=== PATIENT | male | born 1970 | race Caucasian/White ===

== ENCOUNTER 2022-05-24 21:09 | Emergency (ER) | payer OTHER, SELFPAY ==
[2022-05-24] VITALS (9 sets, daily range): BP systolic 141–182; BP diastolic 91–103; PULSE 75–125; RESP 12–20; O2SAT 97–100
--- NOTE | ~2022-05-24 | CT_ITS ---
EXAMINATION: CT brain wo con DATE: 05/24/2022 21:22 INDICATION: Stroke with right arm and leg dystaxia and weakness. TECHNIQUE: Computed tomography (CT) of the head was performed without intravenous contrast. Sagittal and coronal reconstructions were performed. The mA was adjusted according to patient size. Iterative reconstruction technique was employed. The dose-length product was 681.00 mGy-cm. COMPARISON: None FINDINGS: No acute intracranial hemorrhage, acute infarction or abnormal extra axial fluid collection. Ventricl es are normal and symmetric. No mass/mass effect. The orbits, paranasal sinuses and mastoid air cells are normal. IMPRESSION: 1. Normal head CT. Reviewed, dictated and finalized at location A. IMPRESSION: 1. Normal head CT.
--- NOTE | ~2022-05-24 | CT_ITS ---
EXAMINATION: CTA BRAIN/CAROTID DATE: 05/24/2022 21:35 INDICATION: Right arm and leg weakness. TECHNIQUE: Computed tomographic angiography (CTA) of the head and neck was performed with 100 mL Omni paque-350 intravenous contrast. Multiplanar reconstructions and maximum intensity projection 3D-recon structions of the carotid arteries and of the intracranial arteries were created by the technologist on a separate workstation. Automated exposure control and iterative reconstruction technique were em ployed.The dose-length product was 1190.16 mGy-cm. COMPARISON: Head CT dated 05/24/2022 FINDINGS: Carotid arteries: Visualized aortic arch is normal in caliber with no dissection or evident atherosclerotic plaque. The re is small amount of atherosclerotic plaque with 0% stenosis of both the left and right carotid bulb s relative to normal distal artery lumen diameter (NASCET criteria). Additional small amount of ather osclerotic plaque without significant stenosis along the cervical portion of the right vertebral lexy ry. Left vertebral artery is normal. Mild dependent atelectasis likely due to expiratory phase of june ging in the visualized upper lungs. Superior mediastinum is unremarkable as are the cervical soft tis sues. Mild to moderate upper thoracic spondylosis. Cervical spine is unremarkable. Intracranial arteries There is no hemodynamically significant stenosis in the vertebral, basilar and internal carotid arter ies. Vertebral arteries are codominant. There are no aneurysms identified. Both A1 and P1 segments a re patent. There is also a patent anterior to indicating artery. Cerebral arterial arborization appea rs symmetric. IMPRESSION: 1. 0% stenosis of the left and right carotid bulbs relative to normal distal artery lumen diameter (N ASCET criteria). 2. Normal cerebral CT angiogram with no hemodynamically significant stenosis, aneurysm, thrombosis or dissection. Reviewed, dictated and finalized at location A. IMPRESSION: 1. 0% stenosis of the left and right carotid bulbs relative to normal distal ar ale lumen diameter (NASCET criteria). 2. Normal cerebral CT angiogram with no hemodynamically significant stenosis, a neurysm, thrombosis or dissection.
--- NOTE | ~2022-05-24 | XR_ITS ---
EXAMINATION: XR chest 1V portable DATE: 05/24/2022 21:50 INDICATION: Stroke with right arm and leg weakness TECHNIQUE: frontal view of the chest was obtained. COMPARISON: None FINDINGS: Mildly decreased lung volumes. No focal airspace opacities, pulmonary edema, pleural effusion or pneu mothorax. Cardiac silhouette is partially obscured by the small lung volumes and a prominent left par acardial fat pad but appears within normal limits for AP technique. Mild thoracic spondylosis. IMPRESSION: 1. Small lung volumes. No acute cardiopulmonary disease. Reviewed, dictated and finalized at location A.
--- NOTE | 2022-05-24 21:13 | ECG_ITS ---
Measurements Intervals [place] Rate: 85 P: 31 MO: 155 QRS: 39 QRSD: 102 T: 37 QT: 351 QTc: 418 Interpretive Statements SINUS RHYTHM WITH OCCASIONAL VENTRICULAR PREMATURE COMPLEXES OTHERWISE NORMAL ECG NO PREVIOUS ECG AVAILABLE FOR COMPARISON Electronically Signed On 05-25-2022 7:20:24 CDT by Gama Avelar M.D.
[2022-05-24 21:26] LABS: Estimated Glomerular Filt Rate > 60
[2022-05-24 21:27] LABS: Glucose Point of Care 136 mg/dl (65-105)
[2022-05-24 21:31] LABS: Basophils Absolute Auto 0.1 K/mm3 (0.0-0.1); Basophils Percent Auto 0.9 % (0.2-1.2); Eosinophils Absolute Auto 0.2 K/mm3 (0-0.3); Eosinophils Percent Auto 2.1 % (0-4.4); Hematocrit 40.6 % (42.0-52.0); Hemoglobin 12.6 g/dL (14.0-18.0); Immature Granulocyte Absolute 0.02 K/mm3 (0.00-0.031); Immature Granulocyte Percent A 0.3 % (0-0.5); Lymphocytes Absolute Auto 2.26 K/mm3 (0.9-3.2); Mean Corpuscular Hemoglobin 23.8 pg (26-34); Mean Corpuscular Volume 76.7 fl (80-100); Mean Platelet Volume 8.5 fl (7.4-10.4); Monocytes Absolute Auto 0.8 K/mm3 (0.1-0.6); Monocytes Percent Auto 10.4 % (2.6-8.5); Neutrophils Absolute Auto 4.5 K/mm3 (1.3-6.7); Neutrophils Percent Auto 57.3 % (45.5-73.1); Platelet Count Result 301 k/mm3 (150-375); Red Blood Count 5.29 M/mm3 (4.6-6.20); Red Cell Distribution Width 14.4 % (11.5-14.5); White Blood Count 7.8 K/mm3 (4.5-10.0)
[2022-05-24 21:39] LABS: Prothrombin Time 12.6 Seconds (11.1-14.7)
[2022-05-24 21:40] LABS: Alanine Aminotransferase 26 U/L (6-50); Albumin Level 4.3 g/dL (3.5-5.1); Alkaline Phosphatase 114 U/L (38-126); Anion Gap 9 mmol/L (8-16); Aspartate Amino Transferase 25 U/L (17-59); Bilirubin,Total 0.4 mg/dL (0.2-1.3); Blood Urea Nitrogen 12 mg/dL (9-20); Calcium 9.1 mg/dL (8.4-10.2); Carbon Dioxide 25 mmol/L (22-30); Chloride 103 mmol/L (98-107); Estimated Glomerular Filt Rate > 60; Glucose 140 mg/dL (65-110); Partial Thromboplastin Time 26.2 SECONDS (22.3-36.8); Potassium 4.3 mmol/L (3.4-5.0); Sodium 137 mmol/L (137-145)
[2022-05-24 21:51] LABS: Troponin I < 0.012 ng/mL (0.000-0.034)
--- NOTE | 2022-05-24 22:02 | ED.NEUROSD ---
HPI - Neuro Symptoms/Deficit General Chief Complaint: Suspected CVA Stated Complaint: Right arm/leg weakness Time Seen by Provider: 05/24/22 21:18 History of Present Illness HPI Narrative: this is a 51-year-old male presenting to ED with right arm and right leg weakness and ataxia. 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 He was last known normal at 3:00 p.m. when he filled up his casting. He then got in the car and drove until 530. When he tried to get off a cart that point he was having difficulty walking due to weakness in his right leg. He was also having difficulty coordinating his right hand. For example when he was trying to eat with a fork he was hitting himself in the teeth with a fork. He then came into the hospital for evaluation. Patient denies any numbness tingling or weakness to the left side of his body. Denies facial droop, dysarthria dysphagia any vision changes. Related Data Home Medications Medication Instructions Recorded Confirmed naproxen sodium 220 mg tablet 220 mg PO BID PRN 10/22/19 04/01/22 (Aleve) psyllium husk 0.52 gram capsule 0.52 gm PO DAILY 10/22/19 04/01/22 (Metamucil) sitagliptin 50 mg-metformin 1,000 1 tablet PO BID 10/22/19 04/01/22 mg tablet (Janumet) gabapentin 100 mg capsule 100 mg PO DAILY 04/01/22 04/01/22 lidocaine 4 % topical patch 1 patch topical DAILY PRN 04/01/22 04/01/22 pantoprazole 40 mg granules 40 mg PO DAILY 04/01/22 04/01/22 delayed-release for susp in packet (Protonix) Allergies Allergy/AdvReac Type Severity Reaction Status Date / Time Penicillins Allergy Unknown Unknown Verified 04/01/22 09:58 Review of Systems Review of Systems: CONSTITUTIONAL: Denies night sweats. EYES: No eye pain ENT: Denies rhinorrhea CARDIOVASCULAR: Denies palpitations RESPIRATORY: Denies hemoptysis GASTROINTESTINAL: Denies hematemesis GENITOURINARY: Denies hematuria. SKIN: Denies rash MUSCULOSKELETAL: Denies myalgia. NEUROLOGIC: Denies weakness. PSYCHIATRIC: Denies delusions PMFSH Past Medical History Medical History (Updated 05/25/22 @ 19:10 by Kobi Schaefer MD) Body mass index (bmi) 31.0-31.9, adult (10/19/18) Diabetes Ulcerative colitis Family History Family History Mother Diabetes mellitus Family history of congestive heart failure Father Family history of cardiovascular disease Social History Social History Smoking status: Never smoker Exam Narrative: APPEARANCE: No apparent distress. Head atraumatic. EYES: PERRLA/EOMI, NOSE: Normal no drainage NECK: Supple, Trachea midline RESPIRATORY: CTAB, No increased work of breathing. CARDIOVASCULAR: S1S2 appreciated ABDOMINAL: Soft, nontender, nondistended, MUSCULOSKELETAl: No obvious deformities NEURO: Alert. Patient has mild drift and ataxia of the right arm and right leg. Sensation light touch intact in for 4 extremities. Left arm and leg have intact motor, and cerebellar function. Cranial nerves 2-12 grossly intact. SKIN:: Warm, dry. Normal color PSYCHIATRIC: Normal affect Course Vital Signs Vital signs: Vital Signs Pulse Rate 125 H 05/24/22 21:35 Respiratory Rate 16 05/24/22 21:35 Blood Pressure 182/103 H 05/24/22 21:35 Pulse Oximetry 98 05/24/22 21:35 Oxygen Delivery Room Air 05/24/22 21:35 Pulse Rate 112 H 05/25/22 02:50 Respiratory Rate 20 05/25/22 02:50 Blood Pressure 161/94 H 05/25/22 02:50 Pulse Oximetry 100 05/25/22 02:50 Oxygen Delivery Room Air 05/24/22 21:35 MDM - Neuro Symptoms/Deficit MDM Narrative Medical decision making narrative: 51-year-old male presenting to ED with stroke-like symptoms. NIH is 4. CT head, CTA head and neck in order. They were negative for any acute findings. Patient is outside of the tPA window. Patient has been given 324 mg of aspirin. Permissive HTN. Patient was transferred to an outside hospital
[2022-05-24] MEDS: ASPIRIN 81 MG CHEWABLE TABLET 324 MG PO (22:31)
--- NOTE | 2022-05-24 23:54 | PC.NURSE ---
[facility] bed center called and report was given. Pt needs a COVID test before transfer and MD was notified to this. This nurse to call call center back with COVID results at [phone]
[2022-05-25] VITALS (8 sets, daily range): BP systolic 142–162; BP diastolic 92–101; PULSE 112–113; RESP 16–20; O2SAT 96–100
[2022-05-25 00:48] LABS: SARS-CoV-2 RNA PCR Negative
--- NOTE | 2022-05-25 00:53 | PC.NURSE ---
This nurse spoke with the [facility] transfer center with negative results of the COVID test done today.
== END 2022-05-25 02:57 | disposition short-term general hospital (02) ==
PROVIDERS: Emergency Provider Emergency Medicine
DX: I63.9 Cerebral infarction, unspecified (principal); R29.704 NIHSS score 4; Z20.822 Contact with and (suspected) exposure to COVID-19; E11.9 Type 2 diabetes mellitus without complications; Z79.84 Long term (current) use of oral hypoglycemic drugs
CPT/HCPCS: 70450; 70496; 70498; 71045; 80053; 82948; 84484; 85025; 85610; 85730; 93005; 99285; A9270; C9803; Q9967; U0003; U0005

== ENCOUNTER 2023-01-06 17:01 | Emergency (ER) | payer OTHER, SELFPAY ==
[2023-01-06] VITALS (14 sets, daily range): BP systolic 134–141; BP diastolic 85–95; PULSE 70–87; RESP 14–18; TEMP 36.6; O2SAT 96–100
[2023-01-06 17:20] LABS: Glucose Point of Care > 500 mg/dl (65-105)
[2023-01-06 17:24] LABS: Basophils Absolute Auto 0.1 K/mm3 (0.0-0.1); Basophils Percent Auto 0.9 % (0.2-1.2); Eosinophils Absolute Auto 0.1 K/mm3 (0-0.3); Eosinophils Percent Auto 1.8 % (0-4.4); Hematocrit 37.1 % (42.0-52.0); Hemoglobin 11.4 g/dL (14.0-18.0); Immature Granulocyte Absolute 0.02 K/mm3 (0.00-0.031); Immature Granulocyte Percent A 0.3 % (0-0.5); Lymphocytes Absolute Auto 1.76 K/mm3 (0.9-3.2); Mean Corpuscular HGB Conc 30.7 g/dl (32-36); Mean Corpuscular Hemoglobin 21.4 pg (26-34); Mean Corpuscular Volume 69.6 fl (80-100); Mean Platelet Volume 9.6 fl (7.4-10.4); Monocytes Absolute Auto 0.6 K/mm3 (0.1-0.6); Monocytes Percent Auto 8.5 % (2.6-8.5); Neutrophils Absolute Auto 4.5 K/mm3 (1.3-6.7); Neutrophils Percent Auto 63.5 % (45.5-73.1); Platelet Count Result 299 k/mm3 (150-375); Red Blood Count 5.33 M/mm3 (4.6-6.20); Red Cell Distribution Width 14.4 % (11.5-14.5)
[2023-01-06 17:37] LABS: Alanine Aminotransferase 24 U/L (6-50); Albumin Level 4.4 g/dL (3.5-5.1); Alkaline Phosphatase 121 U/L (38-126); Anion Gap 8 mmol/L (8-16); Aspartate Amino Transferase 21 U/L (17-59); Bilirubin,Total 0.7 mg/dL (0.2-1.3); Blood Urea Nitrogen 10 mg/dL (9-20); Calcium 8.6 mg/dL (8.4-10.2); Carbon Dioxide 25 mmol/L (22-30); Chloride 100 mmol/L (98-107); Estimated CRCL calculation 84 ml/min; Estimated Glomerular Filt Rate > 60; Glucose 609 mg/dL (65-110); Potassium 4.3 mmol/L (3.4-5.0); Sodium 133 mmol/L (137-145)
[2023-01-06 17:38] LABS: Beta-Hydroxybutyrate/Acetoacetate 0.06 mmol/L (0.02-0.27)
[2023-01-06 17:44] LABS: Appearance Urine Clear (Clear); Bilirubin Urine Negative (Negative); Blood Urine Negative (Negative); Color Urine Yellow (Yellow); Glucose Urine UA 3+ mg/dL (Negative); Ketones Urine Negative (Negative); Leukocyte Esterase Ur Negative LEU/UL (Negative); Nitrate Urine Negative (Negative); Protein Urine Negative (Negative); Urobilinogen Urine 0.2 mg/dL (<2.0)
[2023-01-06 17:59] LABS: Platelet Estimate Adequate (Adequate)
[2023-01-06 18:00] LABS: Hypochromasia 1+ (NORMAL); Schistocytes None Seen (NORMAL)
[2023-01-06 18:01] LABS: Anisocytosis 1+ (NORMAL); Microcytosis 1+ (NORMAL)
[2023-01-06 18:06] LABS: Specific Grav Ur 1.039 (1.001-1.035)
[2023-01-06 18:07] LABS: Add Urine Microscopic? NO
[2023-01-06] MEDS: SODIUM CHLORIDE 0.9% IV 1,000 ML 999 ML IV CONT ×2 (18:55)
--- NOTE | 2023-01-06 20:32 | ED.GENADULT ---
HPI - General Adult General Chief complaint: Recheck/Abnormal Lab/Rx Stated complaint: high BS Time Seen by Provider: 01/06/23 18:30 History of Present Illness HPI narrative: Patient is a 52-year-old male who presents ER with hyperglycemia. He has follow-up in 3 days with his PCP. He had outpatient lab work that showed his hemoglobin A1c was 14. He also had a critically elevated glucose and was told to come to the ER. Reports for the last 2 to 3 months he has felt a little off. He has not been checking his blood sugars. He takes Lantus 25 units in the evening. He also takes Janumet daily. No fevers or chills or sweats. No chest pain or chest pressure. No polydipsia or polyuria. Related Data Home Medications Medication Instructions Recorded Confirmed naproxen sodium 220 mg tablet 220 mg PO BID PRN 10/22/19 04/01/22 (Aleve) psyllium husk 0.52 gram capsule 0.52 gm PO DAILY 10/22/19 04/01/22 (Metamucil) sitagliptin phosphate 50 1 tablet PO BID 10/22/19 04/01/22 mg-metformin 1,000 mg tablet (Janumet) gabapentin 100 mg capsule 100 mg PO DAILY 04/01/22 04/01/22 pantoprazole 40 mg granules 40 mg PO DAILY 04/01/22 04/01/22 delayed-release for susp in packet (Protonix) apixaban 2.5 mg tablet (Eliquis) 5 mg PO ONCE 11/04/22 11/04/22 atorvastatin 40 mg tablet 40 mg PO DAILY 11/04/22 11/04/22 insulin glargine 100 unit/mL 20 unit subcut DAILY 11/04/22 11/04/22 subcutaneous solution (Lantus U-100 Insulin) Allergies Allergy/AdvReac Type Severity Reaction Status Date / Time Penicillins Allergy Unknown Unknown Verified 11/04/22 09:24 Review of Systems Review of Systems: All systems reviewed & are unremarkable except as noted in HPI and below Constitutional: Constitutional: Denies chills, Reports fatigue and Denies fever(s) ENT: Denies nasal congestion and Denies sore throat Endocrine: Endocrine: Denies excessive sweating, Reports fatigue, Denies polydipsia and Denies polyuria [facility] Past Medical History Medical History Body mass index (bmi) 31.0-31.9, adult (10/19/18) Diabetes Ulcerative colitis Family History Family History Mother Diabetes mellitus Family history of congestive heart failure Father Family history of cardiovascular disease Social History Social History Smoking status: Never smoker Exam Narrative: GENERAL: Well-appearing, well-nourished, and in no acute distress. HEAD: Normocephalic, atraumatic. EYES: PERRL and EOMI. ENT: Mucous membranes moist.. CHEST: Clear to auscultation. No respiratory distress. HEART: Regular rate and rhythm. Normal peripheral pulses. ABDOMEN: Soft, nontender, nondistended. EXTREMITIES: Normal range of motion. No edema. SKIN: Warm, dry, no rash. NEURO: Alert and oriented x3. PSYCH: Normal mood and affect. Course Course Emergency Course: Patient resting comfortably. Informed results. Patient hydrated with 2 L of fluid and blood sugar came down to 332. Patient will have his Lantus increased to 40 units in the evening. He needs follow-up with his PCP. Vital Signs Vital signs: Vital Signs Temperature 97.8 F 01/06/23 17:03 Pulse Rate 87 01/06/23 17:03 Respiratory Rate 18 01/06/23 17:03 Blood Pressure 137/93 H 01/06/23 17:03 Pulse Oximetry 96 01/06/23 17:03 Oxygen Delivery Room Air 01/06/23 17:03 Temperature 97.8 F 01/06/23 17:03 Pulse Rate 72 01/06/23 19:41 Respiratory Rate 14 01/06/23 20:10 Blood Pressure 141/85 H 01/06/23 18:46 Pulse Oximetry 99 01/06/23 20:10 Oxygen Delivery Room Air 01/06/23 17:03 Medical Decision Making Vital Signs Vital Signs: Vital Signs Temperature 97.8 F 01/06/23 17:03 Pulse Rate 87 01/06/23 17:03 Respiratory Rate 18 01/06/23 17:03 Blood Pressure 137/93 H 01/06/23 17:03 Pulse Oximetry 96 01/06/23
[2023-01-06 20:46] LABS: Glucose Point of Care 332 mg/dl (65-105)
== END 2023-01-06 22:08 | disposition home or self-care (01) ==
PROVIDERS: Emergency Provider Emergency Medicine
DX: E11.65 Type 2 diabetes mellitus with hyperglycemia (principal); K51.90 Ulcerative colitis, unspecified, without complications; Z79.4 Long term (current) use of insulin; Z79.84 Long term (current) use of oral hypoglycemic drugs; Z79.01 Long term (current) use of anticoagulants
CPT/HCPCS: 36415; 80053; 81003; 82010; 82948; 85025; 96360; 96361; 99283; J7030

== ENCOUNTER 2023-04-13 09:59 | Observation (INO) | payer OTHER, SELFPAY ==
--- NOTE | ~2023-04-13 | XR_ITS ---
XR chest 2V DATE: 04/13/2023 11:02 INDICATION: Chest pain, shortness of breath TECHNIQUE: PA and lateral views COMPARISON: 05/24/2022 portable AP chest FINDINGS: Normal heart size. No hilar or mediastinal enlargement. No pulmonary infiltrate or consolid ation, pleural effusion or pulmonary vascular congestion or pneumothorax is detected. IMPRESSION: No active cardiopulmonary disease Reviewed, dictated and finalized at location A.
--- NOTE | ~2023-04-13 | CT_ITS ---
Clinical Indication: Shortness of breath, fever, rectal pain CT Scan of the Chest, Abdomen, and Pelvis with Contrast: Technique: Contiguous sections were acquired throughout the chest, abdomen, and pelvis after intraven ous administration of 100 cc of Omnipaque 350. Dose reduction technique was used on this scan by [employer]i lorening automated exposure control and iterative reconstruction technique. The dose-length product (DL P) was 1679.69 mGy-cm. COMPARISON: 01/22/2016 Findings: There is no evidence of any significant mediastinal, hilar or axillary lymphadenopathy. The mediastin al soft tissues appear normal. No pulmonary embolus. No aortic aneurysm or dissection. There is no evidence of pleural or pericardial effusion. The lungs are clear. No pulmonary nodules or infiltrates are noted. The liver, spleen, pancreas, gallbladder, adrenals and kidneys are within normal limits. No evidence of aortic aneurysm. No lymphadenopathy. There is evidence of extensive prior colectomy with anastomosis present extensive surgical material a long the distal bowel. These findings are stable in appearance from prior exam. There are multiple mi ldly prominent perirectal/mesenteric lymph nodes, which are similar to prior exam. Urinary bladder is unremarkable. Prostate gland is enlarged. Impression: No pulmonary embolus. Clear lungs. No acute abnormality in the abdomen or pelvis. Stable postoperative changes of the large bowel, as noted above. Stable prominent/mildly enlarged perirectal and mesenteric lymph nodes. Stability since 2015 suggests benign or indolent process. Reviewed, dictated and finalized at [facility]. Impression: No pulmonary embolus. Clear lungs. No acute abnormality in the abdomen or pelvis. Stable postoperative changes of the large bowel, as noted above. Stable prominent/mildly enlarged perirectal and mesenteric lymph nodes. Stabili ty since 2015 suggests benign or indolent process.
--- NOTE | 2023-04-13 10:06 | ECG_ITS ---
Measurements Intervals [place] Rate: 111 P: 14 AL: 130 QRS: 42 QRSD: 93 T: 26 QT: 309 QTc: 420 Interpretive Statements SINUS TACHYCARDIA OTHERWISE NORMAL ECG COMPARED TO ECG 05/24/2022 21:40:42 SINUS TACHYCARDIA NOW PRESENT Electronically Signed On 04-14-2023 10:32:40 CDT by Jose Severino M.D.
[2023-04-13 10:31] VITALS: BP 125/77; PULSE 113; RESP 20; TEMP 36.3; O2SAT 99
[2023-04-13 10:51] LABS: Basophils Absolute Auto 0.1 K/mm3 (0.0-0.1); Basophils Percent Auto 0.6 % (0.2-1.2); Eosinophils Percent Auto 0.1 % (0-4.4); Hematocrit 33.8 % (42.0-52.0); Hemoglobin 10.1 g/dL (14.0-18.0); Immature Granulocyte Absolute 0.08 K/mm3 (0.00-0.031); Immature Granulocyte Percent A 0.5 % (0-0.5); Lymphocytes Absolute Auto 0.64 K/mm3 (0.9-3.2); Lymphocytes Percent Auto 3.9 % (18.3-44.2); Mean Corpuscular HGB Conc 29.9 g/dl (32-36); Mean Corpuscular Hemoglobin 19.3 pg (26-34); Mean Corpuscular Volume 64.6 fl (80-100); Mean Platelet Volume 9.1 fl (7.4-10.4); Monocytes Absolute Auto 0.7 K/mm3 (0.1-0.6); Neutrophils Absolute Auto 14.8 K/mm3 (1.3-6.7); Neutrophils Percent Auto 90.9 % (45.5-73.1); Platelet Count Result 300 k/mm3 (150-375); Red Blood Count 5.23 M/mm3 (4.6-6.20); Red Cell Distribution Width 17.2 % (11.5-14.5); White Blood Count 16.3 K/mm3 (4.5-10.0)
[2023-04-13 11:00] LABS: Alanine Aminotransferase 22 U/L (6-50); Albumin Level 4.1 g/dL (3.5-5.1); Alkaline Phosphatase 107 U/L (38-126); Anion Gap 9 mmol/L (8-16); Aspartate Amino Transferase 28 U/L (17-59); Bilirubin,Total 0.9 mg/dL (0.2-1.3); Blood Urea Nitrogen 14 mg/dL (9-20); Calcium 8.4 mg/dL (8.4-10.2); Carbon Dioxide 22 mmol/L (22-30); Chloride 103 mmol/L (98-107); Estimated CRCL calculation 74 ml/min; Estimated Glomerular Filt Rate 58; Glucose 202 mg/dL (65-110); Potassium 4.5 mmol/L (3.4-5.0); Sodium 134 mmol/L (137-145)
[2023-04-13 11:23] LABS: Platelet Estimate Adequate (Adequate)
[2023-04-13 11:24] LABS: Hypochromasia 1+ (NORMAL); Poikilocytosis 1+ (NORMAL); Schistocytes None Seen (NORMAL)
--- NOTE | 2023-04-13 13:44 | ED.GENADULT ---
HPI - General Adult General Chief complaint: Shortness of Breath/Dyspnea Stated complaint: SOB, fatigue, inflammed bottom side Time Seen by Provider: 04/13/23 12:53 Source: patient, family ( at bedside), RN notes reviewed and old records reviewed Mode of arrival: ambulatory Limitations: no limitations History of Present Illness HPI narrative: This is a 52 year old male with history of DM and ulcerative colitis who presents for evaluation of multiple complaints. He reports shortness of breath with exertion for several weeks. He is being evaluated by PCP , and he has had ECHO and stress test by seo intern. He also reports fatigue for a few months. He states his fatigue worsened today and he had low grade fever 100.5 F with chills. He also reports 3 days of rectal discomfort. He states he normally has 10 BM daily with his Ulcerative colitis, and that is normal for him. He denies bloody stools. He denies abdominal pain, nausea, vomiting, cough or URI symptoms. He states his GI doctor is at [facility] and he has history of J pouch. He states he just does not feel well today. Related Data Home Medications Medication Instructions Recorded Confirmed naproxen sodium 220 mg tablet 220 mg PO BID PRN Pain (Scale 10/22/19 04/13/23 (Aleve) Score 1-3) psyllium husk 0.52 gram capsule 0.52 gm PO DAILY 10/22/19 04/13/23 (Metamucil) sitagliptin phosphate 50 1 tablet PO DAILY 10/22/19 04/13/23 mg-metformin 1,000 mg tablet (Janumet) gabapentin 100 mg capsule 300 mg PO BID 04/01/22 04/13/23 pantoprazole 40 mg granules 40 mg PO DAILY 04/01/22 04/13/23 delayed-release for susp in packet (Protonix) apixaban 2.5 mg tablet (Eliquis) 5 mg PO BID 11/04/22 04/13/23 atorvastatin 40 mg tablet 40 mg PO DAILY 11/04/22 04/13/23 insulin glargine 100 unit/mL 50 unit subcut QHS 11/04/22 04/13/23 subcutaneous solution (Lantus U-100 Insulin) aspirin 81 mg tablet 81 mg PO DAILY 04/13/23 04/13/23 Allergies Allergy/AdvReac Type Severity Reaction Status Date / Time Penicillins Allergy Unknown Unknown Verified 11/04/22 09:24 Review of Systems Constitutional: Constitutional: Reports chills, Reports fatigue, Reports fever(s) and Reports weakness Cardiovascular: Cardiovascular: Denies syncope, Denies rapid heart rate, Denies irregular heart rhythm, Denies leg edema and Denies dyspnea Respiratory: Respiratory: Denies chest congestion, Denies hemoptysis, Denies excessive phlegm production and Reports dyspnea Gastrointestinal: Gastrointestinal: Denies abdominal pain, Denies hematochezia, Reports diarrhea (chronic) and Denies vomiting Genitourinary: Genitourinary: Denies hematuria, Denies dysuria, Denies penile discharge and Denies testicular pain Musculoskeletal: Musculoskeletal: Denies joint swelling, Denies loss of height and Denies muscle weakness Neurologic: Denies syncope, Denies focal weakness and Denies weakness PMFSH Past Medical History Medical History Body mass index (bmi) 31.0-31.9, adult (10/19/18) Chronic a-fib CVA (cerebral vascular accident) Diabetes Hyperlipidemia Kidney stone Ulcerative colitis Surgical History Surgical History H/O colectomy H/O hernia repair History of ankle surgery History of tonsillectomy Family History Family History Mother Diabetes mellitus Family history of congestive heart failure Father Family history of cardiovascular disease Social History Social History Social History: He lives with and has 3 children .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 Lifelong nonsmoker. Does not use any marijuana or illicit drugs. His is the durable power personal injury attorney for healthcare. Code status full code Smoking status: Never smoker Alcohol intake: yared
[2023-04-13] MEDS: SODIUM CHLORIDE 0.9% IV 1,000 ML 999 ML IV CONT ×2 (13:57→15:47)
[2023-04-13 14:07] LABS: Lactic Acid Reflex 1.2 mmol/L (0.7-2.0)
[2023-04-13 14:13] LABS: INR 1.3; Prothrombin Time 16.3 Seconds (11.1-14.7)
[2023-04-13 14:14] LABS: Partial Thromboplastin Time 33.4 SECONDS (22.3-36.8)
[2023-04-13 14:21] LABS: NT Pro B Type Natriuretic Pept 270 pg/mL (19.9-100); Troponin I < 0.012 ng/mL (0.000-0.034)
[2023-04-13 14:32] LABS: Influenza A QL RT-PCR Negative (Negative); Influenza B QL RT-PCR Negative (Negative); SARS-CoV-2 RNA PCR Negative (Negative)
[2023-04-13 15:06] LABS: Appearance Urine Clear (Clear); Bacteria Urine None Seen /hpf; Bilirubin Urine Negative (Negative); Blood Urine Negative (Negative); Color Urine Yellow (Yellow); Glucose Urine UA 1+ mg/dL (Negative); Ketones Urine Trace mg/dL (Negative); Leukocyte Esterase Ur Negative LEU/UL (Negative); Nitrate Urine Negative (Negative); Protein Urine Trace mg/dL (Negative); RBC Urine 0-2 /hpf (0-2); Specific Grav Ur 1.031 (1.001-1.035); Squamous Epithelial Cell Urine Occasional /hpf (Few); Urobilinogen Urine 0.2 mg/dL (<2.0); WBC Urine 0-5 /hpf
[2023-04-13 15:09] LABS: Add Urine Microscopic? YES
--- NOTE | 2023-04-13 17:01 | PM.IMHP ---
H&P: HPI History of Present Illness Date/Time: 04/13/23 17:01 Chief Complaint: Shortness of breath Narrative: The patient stated that he was short of breath and fatigue. The patient has had a history of having a colectomy with the today loop. Patient stated that he has had an aspirin rectal area. Is reported that a rectal exam was performed and that there was a mucous discharge. The patient stated that this is very common. Chest abdomen pelvis CT was read as followsNo pulmonary embolus. Clear lungs. No acute abnormality in the abdomen or pelvis. Stable postoperative changes of the large bowel, as noted above. Stable prominent/mildly enlarged perirectal and mesenteric lymph nodes. Stability since 2016 suggests benign or indolent process. The patient was started on IV fluids Rocephin and Flagyl. The patient is being admitted to observation status on the date of service of 04/13/2023. Review of Systems Review of Systems: All systems reviewed & are unremarkable except as noted in HPI and below Constitutional: Constitutional: Reports as per HPI and Reports no additional constitutional complaints Eyes: Eyes: Reports as per HPI and Reports no additional eye complaints ENT: Reports system reviewed and no additional complaints, except as documented and Reports Normal hearing present Cardiovascular: Cardiovascular: Reports no additional cardiovascular complaints Respiratory: Respiratory: Reports no additional respiratory complaints and Reports no additional respiratory complaints Gastrointestinal: Gastrointestinal: Reports as per HPI and Reports no additional gastrointestinal complaints Musculoskeletal: Musculoskeletal: Reports no additional musculoskeletal complaints Integumentary/Breasts: Skin/Breast: Reports system reviewed and no additional complaints, except as docu and Reports as per HPI Neurologic: Reports system reviewed and no additional complaints, except as documented, Reports as per HPI and Reports Normal hearing present Psychiatric: Psychiatric: Reports no additional psychiatric complaints and Reports as per HPI Endocrine: Endocrine: Reports no additional endocrine complaints Hematologic/Lymphatic: Hematologic/Lymphatic: Reports no additional hematologic/lymphatic complaints Allergic/Immunologic: Allergic/Immunologic: Reports no additional allergic/immunologic complaints [facility] Past Medical History Medical History (Updated 04/13/23 @ 20:59 by Nora Emerson NP) Body mass index (bmi) 31.0-31.9, adult (10/19/18) Chronic a-fib CVA (cerebral vascular accident) Diabetes Hyperlipidemia Kidney stone Ulcerative colitis Surgical History Surgical History (Updated 04/13/23 @ 17:04 by Nora Emerson NP) H/O colectomy H/O hernia repair History of ankle surgery History of tonsillectomy Family History Family History Mother Diabetes mellitus Family history of congestive heart failure Father Family history of cardiovascular disease Social History Social History (Updated 04/13/23 @ 20:50 by Nora Emerson NP) Social History: He lives with and has 3 children .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 Lifelong nonsmoker. Does not use any marijuana or illicit drugs. His is the durable power prosecuting attorney for healthcare. Code status full code Smoking status: Never smoker Alcohol intake: current Drinks per week: 0 Substance use: never Substance use type: does not use Lack of Transportation: No Lack of Food: Never True Current Housing: I Have Housing Concerned About Future Housing: No Difficulty Paying Gas/Electric Bills: No Difficulty Paying for Meds: No Currently Unemployed: No Education: Associate Degree Difficulty w/ Childcare or Family Care: No Spiritual care concerns: No Meds Home Medications and Allergies Home Medications Medication Instructions Recorded Confirmed Type
[2023-04-13 17:03] VITALS: BP 164/93; PULSE 106; RESP 18; O2SAT 94
[2023-04-13 17:26] VITALS: BMI 31.4
--- NOTE | 2023-04-13 17:32 | ADMGEN ---
This patient, Brian Britton, was admitted to Medical Room 251-. Patient/family oriented to hospital policies and general routines including ID bracelet, bed and alarms, visiting hours, pain management, procedures, bathroom and other care routines, personal items, smoking policy, room service/diet, and visiting hours. Information on how to activate the Rapid Response Team has been discussed. Patient/Family are encouraged to report perceived risks to care and to ask questions if they do not understand what they are told or what they should do.
[2023-04-13 17:33] VITALS: BP 176/92; PULSE 108; RESP 20; TEMP 37.2; O2SAT 100
[2023-04-13 17:48] LABS: Glucose Point of Care 190 mg/dl (65-105)
[2023-04-13] MEDS: HYDROcodone/acetaminophen (*CRX) 5-325 MG TABLET 1 TAB PO (17:49)
[2023-04-13 17:50] VITALS: TEMP 37.2
[2023-04-13] MEDS: ACETAMINOPHEN 325 MG TABLET 650 MG PO ×2 (17:50→22:02)
[2023-04-13] MEDS: SODIUM CHLORIDE 0.9% IV 1,000 ML 125 ML IV CONT (18:17)
[2023-04-13] MEDS: INSULIN GLARGINE (*BKC) 100 UNITS/ML 50 UNITS SUB-Q (21:01)
[2023-04-13] MEDS: metroNIDAZOLE 500 MG/ISO 100ML 500 MG/100 ML BAG 100 MG IVPB (21:01)
[2023-04-13] MEDS: INSULIN ASPART (*BKC) 100 UNITS/ML SUB-Q (21:02)
[2023-04-13 22:01] LABS: Glucose Point of Care 225 mg/dl (65-105)
[2023-04-13] MEDS: GABAPENTIN 300 MG CAPSULE PO (22:02)
[2023-04-13 22:14] VITALS: BP 148/79; PULSE 100; RESP 18; TEMP 36.6; O2SAT 97
[2023-04-14] MEDS: metroNIDAZOLE 500 MG/ISO 100ML 500 MG/100 ML BAG 100 MG IVPB ×3 (05:13→22:11)
[2023-04-14 05:31] LABS: Basophils Percent Auto 0.5 % (0.2-1.2); Hematocrit 29.6 % (42.0-52.0); Hemoglobin 8.7 g/dL (14.0-18.0); Immature Granulocyte Absolute 0.03 K/mm3 (0.00-0.031); Immature Granulocyte Percent A 0.5 % (0-0.5); Lymphocytes Absolute Auto 0.67 K/mm3 (0.9-3.2); Lymphocytes Percent Auto 11.7 % (18.3-44.2); Mean Corpuscular HGB Conc 29.4 g/dl (32-36); Mean Corpuscular Hemoglobin 19.4 pg (26-34); Mean Corpuscular Volume 66.1 fl (80-100); Mean Platelet Volume 9.1 fl (7.4-10.4); Monocytes Absolute Auto 0.2 K/mm3 (0.1-0.6); Monocytes Percent Auto 4.2 % (2.6-8.5); Neutrophils Absolute Auto 4.7 K/mm3 (1.3-6.7); Neutrophils Percent Auto 83.1 % (45.5-73.1); Platelet Count Result 211 k/mm3 (150-375); Red Blood Count 4.48 M/mm3 (4.6-6.20); Red Cell Distribution Width 17.2 % (11.5-14.5); White Blood Count 5.7 K/mm3 (4.5-10.0)
[2023-04-14 05:40] LABS: Lactic Acid Reflex 0.8 mmol/L (0.7-2.0)
[2023-04-14 05:41] LABS: Alanine Aminotransferase 36 U/L (6-50); Albumin Level 3.1 g/dL (3.5-5.1); Alkaline Phosphatase 77 U/L (38-126); Anion Gap 3 mmol/L (8-16); Aspartate Amino Transferase 43 U/L (17-59); Bilirubin,Total 0.6 mg/dL (0.2-1.3); Blood Urea Nitrogen 11 mg/dL (9-20); Calcium 7.9 mg/dL (8.4-10.2); Carbon Dioxide 24 mmol/L (22-30); Chloride 108 mmol/L (98-107); Estimated CRCL calculation 81 ml/min; Estimated Glomerular Filt Rate > 60; Glucose 161 mg/dL (65-110); Potassium 4.1 mmol/L (3.4-5.0); Sodium 135 mmol/L (137-145)
[2023-04-14 05:50] LABS: Hemoglobin A1C 10.7 % (<5.7)
[2023-04-14 06:00] VITALS: BP 136/71; PULSE 93; RESP 20; TEMP 36.8; O2SAT 99
[2023-04-14 06:22] LABS: Anisocytosis 1+ (NORMAL); Hypochromasia 2+ (NORMAL); Microcytosis 2+ (NORMAL); Platelet Estimate Adequate (Adequate); Schistocytes None Seen (NORMAL)
[2023-04-14] MEDS: SODIUM CHLORIDE 0.9% IV 1,000 ML 125 ML IV CONT (07:37)
[2023-04-14] MEDS: ACETAMINOPHEN 325 MG TABLET 650 MG PO ×2 (07:45→16:59)
[2023-04-14 08:10] LABS: Glucose Point of Care 127 mg/dl (65-105)
[2023-04-14] MEDS: PSYLLIUM SUGAR FREE POWDER PACKET 1 PACKET PO (09:04)
[2023-04-14] MEDS: metFORMIN HCL 500 MG TABLET 1000 MG PO (09:05)
[2023-04-14] MEDS: APIXABAN 2.5 MG TABLET 5 MG PO (09:05)
[2023-04-14 09:06] VITALS: RESP 20; O2SAT 99
[2023-04-14] MEDS: PANTOPRAZOLE 40 MG TABLET PO (09:06)
[2023-04-14] MEDS: ASPIRIN 81 MG ENTERIC TABLET PO (09:06)
[2023-04-14] MEDS: GABAPENTIN 300 MG CAPSULE PO ×2 (09:06→17:00)
[2023-04-14] MEDS: ATORVASTATIN 40 MG TABLET PO (09:06)
[2023-04-14] MEDS: HYDROcodone/acetaminophen (*CRX) 5-325 MG TABLET 1 TAB PO (10:49)
[2023-04-14 11:55] LABS: Glucose Point of Care 143 mg/dl (65-105)
--- NOTE | 2023-04-14 12:07 | PM.IMPN ---
Progress Note: A&P Assessment and Plan (1) Rectal pain: Code(s): K62.89 - Other specified diseases of anus and rectum Status: Acute Assessment and Plan: GI has been consulted. The patient was started on Rocephin and Flagyl. Continue with analgesics. (2) Hyperlipidemia: Code(s): E78.5 - Hyperlipidemia, unspecified Status: Acute Assessment and Plan: Continue with atorvastatin (3) CVA (cerebral vascular accident): Code(s): I63.9 - Cerebral infarction, unspecified Status: Acute Assessment and Plan: The patient has no residual. The patient is on aspirin. (4) Chronic a-fib: Code(s): I48.20 - Chronic atrial fibrillation, unspecified Status: Acute Assessment and Plan: The patient is in sinus rhythm. Continue with apixaban (5) Diabetes: Code(s): E11.9 - Type 2 diabetes mellitus without complications Status: Acute Assessment and Plan: Accu-Cheks AC and HS with sliding scale insulin. Check A1c. Continue with glargine and oral medications. (6) Elevated BP without diagnosis of hypertension: Code(s): R03.0 - Elevated blood-pressure reading, without diagnosis of hypertension Status: Acute Assessment and Plan: P.r.n. hydralazine. (7) Hypersomnia: Code(s): G47.10 - Hypersomnia, unspecified Status: Acute Assessment and Plan: Continue with home settings for CPAP the patient stated that he uses Cialis for this. Subjective Date/time seen: 04/14/23 12:07 Interval history: Patient still feels a little short of breath upon walking. No other specific complaints Review of Systems Review of Systems: All systems reviewed & are unremarkable except as noted in HPI and below Constitutional: Constitutional: Reports as per HPI and Reports no additional constitutional complaints Eyes: Eyes: Reports as per HPI and Reports no additional eye complaints ENT: Reports system reviewed and no additional complaints, except as documented and Reports Normal hearing present Cardiovascular: Cardiovascular: Reports no additional cardiovascular complaints Respiratory: Respiratory: Reports no additional respiratory complaints and Reports no additional respiratory complaints Gastrointestinal: Gastrointestinal: Reports as per HPI and Reports no additional gastrointestinal complaints Musculoskeletal: Musculoskeletal: Reports no additional musculoskeletal complaints Integumentary/Breasts: Skin/Breast: Reports system reviewed and no additional complaints, except as docu and Reports as per HPI Neurologic: Reports system reviewed and no additional complaints, except as documented, Reports as per HPI and Reports Normal hearing present Psychiatric: Psychiatric: Reports no additional psychiatric complaints and Reports as per HPI Endocrine: Endocrine: Reports no additional endocrine complaints Hematologic/Lymphatic: Hematologic/Lymphatic: Reports no additional hematologic/lymphatic complaints Allergic/Immunologic: Allergic/Immunologic: Reports no additional allergic/immunologic complaints Exam Const: General: cooperative, healthy appearing, comfortable, no acute distress, well developed, awake, Physically active, average body habitus and well nourished Nutritional Appearance: average body habitus and well nourished Orientation/consciousness: oriented to person, oriented to place, oriented to time and patient oriented x3 Limitations: no limitations HENMT: Head: normal to inspection, No palpable skull fracture present, normocephalic, atraumatic and abrasion Ears: hearing grossly normal bilaterally and external ears normal Face/Nose/Sinus: Normal external nose present and Normal nares present Eyes: General: appearance normal, both eyes and all related structures Alignment and Position: alignment normal Periorbital: periorbital findings normal Eyelids: eyelids normal Sclera: sclerae normal Pupils: Equal, round and reactiv
--- NOTE | 2023-04-14 13:32 | WPDGICN ---
Assessment and Plan Assessment and plan (1) SIRS (systemic inflammatory response syndrome): Code(s): R65.10 - Systemic inflammatory response syndrome (SIRS) of non-infectious origin without acute organ dysfunction Status: Acute Assessment and Plan: will get c diff wonder if could have pouchitis (will assess tomorrow with sigmoidoscopy), he has j-pouch with total colectomy started on antibiotics (2) Diabetes: Code(s): E11.9 - Type 2 diabetes mellitus without complications Status: Acute (3) Rectal pain: Code(s): K62.89 - Other specified diseases of anus and rectum Status: Acute Assessment and Plan: probably pouchitis tomorrow will perform good rectal exam when I do sigmoidoscopy (4) Chronic a-fib: Code(s): I48.20 - Chronic atrial fibrillation, unspecified Status: Acute (5) History of total colectomy: Code(s): Z90.49 - Acquired absence of other specified parts of digestive tract Status: Acute (6) Anemia: Code(s): D64.9 - Anemia, unspecified Status: Acute GI Consult Note Consult date/time: 04/14/23 13:32 Reason for consult: rectal pain HPI: Brian Britton is a 52 year old male with DM on meds, afib on blood thinner, ulcerative colitis that required total colectomy with ileal pouch anal anastomosis years ago. Since he has experienced loose stools up to 10 times a day, last sigmoidoscopy 1 year ago at [facility] and his regular GI doctor is Lorna at [facility]. He came here with progressive shortness of breath, fatigue, also rectal discomfort for last week, denies blood in stools. CT scan reviewed, No pulmonary embolus. Clear lungs. No acute abnormality in the abdomen or pelvis. Stable postoperative changes of the large bowel, as noted above. Stable prominent/mildly enlarged perirectal and mesenteric lymph nodes. Stability since 2016 suggests benign or indolent process. WBC 16 down to 5.7, hb 8.7 Review of Systems Constitutional: Constitutional: Reports chills Eyes: Eyes: Denies blurry vision ENT: Reports Normal hearing present Cardiovascular: Cardiovascular: Denies chest pain Respiratory: Respiratory: Reports dyspnea on exertion Gastrointestinal: Comments: rectal pain Genitourinary: Genitourinary: Denies dysuria Musculoskeletal: Musculoskeletal: Denies neck pain Integumentary/Breasts: Skin/Breast: Denies rash Neurologic: Denies Abnormal speech present Psychiatric: Psychiatric: Denies behavioral changes [facility] Past Medical History Medical History (Updated 04/14/23 @ 13:40 by Demetrius Pritchett MD) Anemia Body mass index (bmi) 31.0-31.9, adult (10/19/18) Chronic a-fib CVA (cerebral vascular accident) Diabetes Hyperlipidemia Kidney stone Ulcerative colitis Surgical History Surgical History (Updated 04/14/23 @ 13:38 by Demetrius Pritchett MD) H/O colectomy H/O hernia repair History of ankle surgery History of tonsillectomy History of total colectomy Family History Family History Mother Diabetes mellitus Family history of congestive heart failure Father Family history of cardiovascular disease Social History Social History Social History: He lives with and has 3 children .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 Lifelong nonsmoker. Does not use any marijuana or illicit drugs. His is the durable power clerk for healthcare. Code status full code Smoking status: Never smoker Alcohol intake: current Drinks per week: 0 Substance use: never Substance use type: does not use Lack of Transportation: No Lack of Food: Never True Current Housing: I Have Housing Concerned About Future Housing: No Difficulty Paying Gas/Electric Bills: No Difficulty Paying for Meds: No Currently Unemployed: No Education: Associate Degree Difficulty w
[2023-04-14 13:49] VITALS: BP 125/75; PULSE 99; RESP 18; TEMP 37.1; O2SAT 98
[2023-04-14 13:51] VITALS: BP 129/74; PULSE 101; O2SAT 97
[2023-04-14 13:53] VITALS: BP 122/68; PULSE 111; O2SAT 100
[2023-04-14 17:00] LABS: Glucose Point of Care 125 mg/dl (65-105)
[2023-04-14 19:36] VITALS: BP 130/67; PULSE 101; RESP 18; TEMP 37.2; O2SAT 95
[2023-04-14 20:42] LABS: Glucose Point of Care 247 mg/dl (65-105)
[2023-04-14] MEDS: INSULIN GLARGINE (*BKC) 100 UNITS/ML 35 UNITS SUB-Q (20:46)
[2023-04-14 22:35] LABS: Toxigenic C. Diff NEGATIVE (NEGATIVE)
[2023-04-15] VITALS (9 sets, daily range): BP systolic 115–165; BP diastolic 69–96; PULSE 77–89; RESP 16–20; TEMP 36.4–37.3; O2SAT 96–100
[2023-04-15 00:59] LABS: Glucose Point of Care 185 mg/dl (65-105)
[2023-04-15] MEDS: metroNIDAZOLE 500 MG/ISO 100ML 500 MG/100 ML BAG 100 MG IVPB ×3 (05:49→21:08)
[2023-04-15 08:41] LABS: Glucose Point of Care 134 mg/dl (65-105)
--- NOTE | 2023-04-15 09:39 | PM.IMPN ---
Progress Note: A&P Assessment and Plan (1) Rectal pain: Code(s): K62.89 - Other specified diseases of anus and rectum Status: Acute Assessment and Plan: GI has been consulted. Plan for flexible sigmoidoscopy today. continue on Rocephin and Flagyl. Continue with analgesics. (2) Hyperlipidemia: Code(s): E78.5 - Hyperlipidemia, unspecified Status: Acute Assessment and Plan: Continue with atorvastatin (3) CVA (cerebral vascular accident): Code(s): I63.9 - Cerebral infarction, unspecified Status: Acute Assessment and Plan: The patient has no residual weakness. The patient is on aspirin. (4) Chronic a-fib: Code(s): I48.20 - Chronic atrial fibrillation, unspecified Status: Acute Assessment and Plan: The patient is in sinus rhythm. Continue with apixaban (5) Diabetes: Code(s): E11.9 - Type 2 diabetes mellitus without complications Status: Acute Assessment and Plan: Accu-Cheks AC and HS with sliding scale insulin. Check A1c. Continue with glargine and oral medications. (6) Elevated BP without diagnosis of hypertension: Code(s): R03.0 - Elevated blood-pressure reading, without diagnosis of hypertension Status: Acute Assessment and Plan: P.r.n. hydralazine. (7) Hypersomnia: Code(s): G47.10 - Hypersomnia, unspecified Status: Acute Assessment and Plan: Continue with home settings for CPAP the patient stated that he uses Cialis for this. Subjective Date/time seen: 04/15/23 09:39 Interval history: No symptoms at this time Review of Systems Constitutional: Constitutional: Reports chills Eyes: Eyes: Denies blurry vision ENT: Reports Normal hearing present Cardiovascular: Cardiovascular: Denies chest pain Respiratory: Respiratory: Reports dyspnea on exertion Gastrointestinal: Comments: rectal pain Genitourinary: Genitourinary: Denies dysuria Musculoskeletal: Musculoskeletal: Denies neck pain Integumentary/Breasts: Skin/Breast: Denies rash Neurologic: Denies Abnormal speech present Psychiatric: Psychiatric: Denies behavioral changes Exam Const: General: cooperative, healthy appearing, comfortable, no acute distress, well developed, awake, Physically active, average body habitus and well nourished Nutritional Appearance: average body habitus and well nourished Orientation/consciousness: oriented to person, oriented to place, oriented to time and patient oriented x3 Limitations: no limitations HENMT: Head: normal to inspection, No palpable skull fracture present, normocephalic, atraumatic and abrasion Ears: hearing grossly normal bilaterally and external ears normal Face/Nose/Sinus: Normal external nose present and Normal nares present Eyes: General: appearance normal, both eyes and all related structures Alignment and Position: alignment normal Periorbital: periorbital findings normal Eyelids: eyelids normal Sclera: sclerae normal Pupils: Equal, round and reactive pupils present EOM: EOMs intact bilaterally Neck: Neck: normal visual inspection, full ROM, no lymphadenopathy, trachea midline and supple Chest: Chest palpation & inspection: normal inspection of the chest Resp: Effort & Inspection: normal respiratory effort Auscultation: clear to auscultation bilaterally Cardio: Palpation: normal PMI Rate: regular rate Rhythm: regular rhythm Heart sounds: S1 normal heart sound present and S2 normal heart sound present Peripheral pulses: Peripheral pulses 2+ throughout GI: Inspection: normal to inspection Auscultation: normal bowel sounds Rectal Exam: deferred Back/Spine/Pelvis: Cervical Spine: cervical ROM normal Skin: General skin exam: normal color Lesions: no lesions Rashes: no rashes Trauma: no lacerations or abrasions Wounds: no wounds Hair: normal Nails: normal Neuro: General: oriented to person, oriented to place, oriented to time and pat
[2023-04-15] MEDS: LACTATED RINGERS 1,000 ML 150 ML IV CONT (11:05)
[2023-04-15 11:06] LABS: Glucose Point of Care 134 mg/dl (65-105)
--- NOTE | 2023-04-15 11:22 | WPDANESEPPF ---
Anes - Initial Pre Proc Eval Procedure: Operation Date: 04/15/23 13:45 Proposed Procedures p Flexible Sigmoidoscopy - Demetrius Pritchett MD Date/Time: 04/15/23 11:22 Surgeon: Nestor Gresham MD Pre Op Diagnosis: sirs,rectal pain,leukocytosis Patient Data Age: 52 Gender: M Height: 1.85 m Weight: 108 kg Last Vital Signs Temp 36.4 C 04/15/23 11:00 Pulse 86 04/15/23 11:00 Resp 16 04/15/23 11:00 BP 161/96 H 04/15/23 11:00 Pulse Ox 99 04/15/23 11:00 O2 Del Method Room Air 04/15/23 11:00 Allergies Allergy/AdvReac Type Severity Reaction Status Date / Time Penicillins Allergy Unknown Unknown Verified 04/15/23 11:05 Home Medications Medication Instructions Recorded Confirmed Type naproxen sodium 220 mg tablet 220 mg PO BID PRN Pain (Scale 10/22/19 04/13/23 History (Aleve) Score 1-3) psyllium husk 0.52 gram capsule 0.52 gm PO DAILY 10/22/19 04/13/23 History (Metamucil) sitagliptin phosphate 50 1 tablet PO DAILY 10/22/19 04/13/23 History mg-metformin 1,000 mg tablet (Janumet) gabapentin 100 mg capsule 300 mg PO BID 04/01/22 04/13/23 History pantoprazole 40 mg granules 40 mg PO DAILY 04/01/22 04/13/23 History delayed-release for susp in packet (Protonix) apixaban 2.5 mg tablet (Eliquis) 5 mg PO BID 11/04/22 04/13/23 History atorvastatin 40 mg tablet 40 mg PO DAILY 11/04/22 04/13/23 History insulin glargine 100 unit/mL 50 unit subcut QHS 11/04/22 04/13/23 History subcutaneous solution (Lantus U-100 Insulin) modafinil 200 mg tablet 200 mg PO DIRECTED #45 tabs 11/21/22 04/13/23 Rx aspirin 81 mg tablet 81 mg PO DAILY 04/13/23 04/13/23 History Laboratory Tests 04/14/23 04/14/23 04/14/23 11:42 16:57 20:36 POC Capillary Glucose 143 H mg/dl 125 H mg/dl 247 H mg/dl (65-105) (65-105) (65-105) C. difficile (PCR) 04/14/23 04/15/23 04/15/23 21:40 00:56 08:31 POC Capillary Glucose 185 H mg/dl 134 H mg/dl (65-105) (65-105) C. difficile (PCR) Negative (NEGATIVE) 04/15/23 11:02 POC Capillary Glucose 134 H mg/dl (65-105) C. difficile (PCR) Patient hx anesthesia problems: none Family hx anesthesia problems: none Results Review: All pre-operative results and documents have been reviewed as part of the pre-operative evaluation. [facility] Past Medical History Medical History (Updated 04/14/23 @ 13:40 by Demetrius Pritchett MD) Anemia Body mass index (bmi) 31.0-31.9, adult (10/19/18) Chronic a-fib CVA (cerebral vascular accident) Diabetes Hyperlipidemia Kidney stone Ulcerative colitis Surgical History Surgical History (Updated 04/14/23 @ 13:38 by Demetrius Pritchett MD) H/O colectomy H/O hernia repair History of ankle surgery History of tonsillectomy History of total colectomy Family History Family History Mother Diabetes mellitus Family history of congestive heart failure Father Family history of cardiovascular disease Social History Social History Social History: He lives with and has 3 children .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 Lifelong nonsmoker. Does not use any marijuana or illicit drugs. His is the durable power divorce attorney for healthcare. Code status full code Smoking status: Never smoker Alcohol intake: current Drinks per week: 0 Substance use: never Substance use type: does not use Lack of Transportation: No Lack of Food: Never True Current Housing: I Have Housing Concerned About Future Housing: No Difficulty Paying Gas/Electric Bills: No Difficulty Paying for Meds: No Currently Unemployed: No Education: Associate Degree Difficulty w/ Childcare or Family Care: No Spiritual care concerns: No Anes - Eval Final PreProcedure Day of Procedure 04/15/23 11:
[2023-04-15] MEDS: metFORMIN HCL 500 MG TABLET 1000 MG PO (13:52)
[2023-04-15] MEDS: ATORVASTATIN 40 MG TABLET PO (13:52)
[2023-04-15] MEDS: PSYLLIUM SUGAR FREE POWDER PACKET 1 PACKET PO (13:52)
[2023-04-15] MEDS: GABAPENTIN 300 MG CAPSULE PO ×2 (13:52→17:29)
[2023-04-15] MEDS: PANTOPRAZOLE 40 MG TABLET PO (13:52)
[2023-04-15] MEDS: ASPIRIN 81 MG ENTERIC TABLET PO (13:53)
[2023-04-15] MEDS: ACETAMINOPHEN 325 MG TABLET 650 MG PO (14:01)
[2023-04-15 17:09] LABS: Glucose Point of Care 198 mg/dl (65-105)
[2023-04-15] MEDS: MESALAMINE 1,000 MG SUPP.RECT 1000 MG RECTAL (21:00)
[2023-04-15 21:02] LABS: Glucose Point of Care 168 mg/dl (65-105)
[2023-04-15] MEDS: INSULIN GLARGINE (*BKC) 100 UNITS/ML 50 UNITS SUB-Q (21:07)
[2023-04-16 08:00] VITALS: PULSE 84; RESP 18; O2SAT 97
[2023-04-16 08:29] LABS: Glucose Point of Care 140 mg/dl (65-105)
[2023-04-16] MEDS: PSYLLIUM SUGAR FREE POWDER PACKET 1 PACKET PO (09:01)
[2023-04-16] MEDS: metFORMIN HCL 500 MG TABLET 1000 MG PO (09:01)
[2023-04-16] MEDS: GABAPENTIN 300 MG CAPSULE PO (09:01)
[2023-04-16] MEDS: ASPIRIN 81 MG ENTERIC TABLET PO (09:01)
[2023-04-16] MEDS: ATORVASTATIN 40 MG TABLET PO (09:01)
[2023-04-16] MEDS: PANTOPRAZOLE 40 MG TABLET PO (09:01)
[2023-04-16 09:11] VITALS: O2SAT 97
--- NOTE | 2023-04-16 09:56 | WPDANESPN ---
Anes - Prog Note Post-Op Date/Time: 04/16/23 09:56 Cardiovascular status: normal Respiratory status: normal Airway patency: baseline Mental status: baseline Post-Op hydration status: normal Vital Signs: Last Vital Signs Temp 98.4 F 04/15/23 19:17 Pulse 84 04/15/23 19:17 Resp 18 04/15/23 19:17 BP 151/84 H 04/15/23 19:17 Pulse Ox 97 04/16/23 09:11 O2 Del Method Room Air 04/16/23 09:11 Pain Score (VAS): 0/10 I/O: Intake & Output 04/15/23 04/16/23 04/16/23 23:59 07:59 15:59 Intake Total 840 240 Balance 840 240 Laboratory Tests 04/14/23 05:13 04/14/23 05:13 04/15/23 04/15/23 04/15/23 11:02 17:04 20:59 POC Capillary Glucose 134 H 198 H 168 H 04/16/23 08:26 POC Capillary Glucose 140 H Post-procedural complaints: none Patient Feedback: Patient satisfied with anesthetic care.
[2023-04-16 11:47] LABS: Glucose Point of Care 131 mg/dl (65-105)
--- NOTE | 2023-04-16 13:10 | WPDGIPROGNO ---
Progress Note: A&P Assessment and Plan (1) Pouchitis: Code(s): K91.850 - Pouchitis Status: Acute Assessment and Plan: biopsies pending but findings consistent with pouchitis he can go home with 10 more days of ciprofloxacin, also 4 weeks of canasa suppository, consider vsl-3 (probiotic) follow-up with his GI doctor in 3-4 weeks (2) Leukocytosis: Code(s): D72.829 - Elevated white blood cell count, unspecified Status: Acute Assessment and Plan: resolved (3) History of total colectomy: Code(s): Z90.49 - Acquired absence of other specified parts of digestive tract Status: Acute Assessment and Plan: h/o UC pouchitis now (4) Anal or rectal pain: Code(s): K62.89 - Other specified diseases of anus and rectum Status: Acute Assessment and Plan: much better Subjective Date/time seen: 04/16/23 13:10 Interval history: feeling better, less rectal pain sigmoidoscopy consistent with pouchitis Review of Systems Review of Systems: All systems reviewed & are unremarkable except as noted in HPI and below Exam Const: General: comfortable and no acute distress HENMT: Face/Nose/Sinus: Normal nares present Eyes: General: appearance normal, both eyes and all related structures Neck: Neck: supple Resp: Auscultation: clear to auscultation bilaterally Cardio: Rate: regular rate Rhythm: regular rhythm GI: Inspection: non-distended GI Palp: Yes Soft to palpation and No Guarding due to palpation present (GI) Auscultation: normal bowel sounds Other: surgical scars Skin: General skin exam: normal color Neuro: Speech: normal speech Extrem: General: normal to inspection Psych: Mental Status: mental status grossly normal Objective Data Vital Signs Vital Signs: Vital Signs - 24 hr 04/15/23 14:36 04/15/23 16:26 04/15/23 19:17 Temperature 98.3 F 98.3 F 98.4 F Pulse Rate 87 84 Respiratory Rate 18 18 Blood Pressure 133/72 151/84 H Pulse Oximetry 99 100 Oxygen Delivery 04/16/23 09:11 Temperature Pulse Rate Respiratory Rate Blood Pressure Pulse Oximetry 97 Oxygen Delivery Room Air Intake/Output Intake/Output: Intake & Output 04/13/23 04/14/23 04/15/23 04/16/23 23:59 23:59 23:59 23:59 Intake Total 2150 4867 1140 240 Output Total 4 Balance 2150 6421 1133 240 Meds/Results Medications: Active Medications Generic Name Dose Route Start Last Admin Trade Name Freq PRN Reason Stop Dose Admin Acetaminophen 650 mg 04/13/23 15:42 04/15/23 14:01 Acetaminophen 325 Mg Tablet PO 650 mg Q4H PRN Administration Mild Pain (1-3) or Fever Hydrocodone Bitart/Acetaminophen 1 tab 04/13/23 17:11 04/14/23 10:49 Hydrocodone/Acetaminophen (*Crx) 5-325 Mg Tablet PO 1 tab Q4H PRN Administration Pain Rated 4-6 Apixaban 5 mg 04/14/23 09:00 04/14/23 09:05 Apixaban 2.5 Mg Tablet PO 5 mg Q12HR ELIEL Administration Aspirin 81 mg 04/14/23 09:00 04/16/23 09:01 Aspirin 81 Mg Enteric Tablet PO 05/14/23 08:59 81 mg DAILY ELIEL Administration Atorvastatin Calcium 40 mg 04/14/23 09:00 04/16/23 09:01 Atorvastatin 40 Mg Tablet PO 40 mg DAILY ELIEL Administration Dextrose 12.5 gm 04/13/23 20:45 Dextrose 50% 25 Gm/50 Ml Syringe IV PUSH PRN PRN Hypoglycemia Protocol Fentanyl Citrate 25 mcg 04/13/23 20:58 Fentanyl Citrate Inj (*Crx) 100 Mcg/2 Ml Vial IV PUSH Q4H PRN Pain Rated 7-10 Gabapentin 300 mg 04/13/23 20:50 04/16/23 09:01 Gabapentin 300 Mg Capsule PO 300 mg BID ELIEL Administration Glucagon 1 mg 04/13/23 20:45 Glucagon For Inj 1 Mg Vial IM PRN PRN Hypoglycemia Protocol Glucose 15 gm 04/13/23 20:45 Glucose Oral Gel 15 Gm Of Glucse In 37.5 Gm Tube PO PRN PRN Hypoglycemia Protocol Hydralazine HCl 10 mg 04/13/23 21:04 Hydralazine Hcl 20 Mg/Ml Vial IV PUSH Q8H PRN Blo
--- NOTE | 2023-04-16 13:28 | PM.DS ---
DS: Admitting Diagnosis Discharge Date 04/16/2023 Admitting Diagnosis Shortness of breath DS: Discharge Diagnosis Discharge Diagnosis (1) Rectal pain: Code(s): K62.89 - Other specified diseases of anus and rectum Status: Acute Assessment and Plan: GI has been consulted. Plan for flexible sigmoidoscopy today. continue on Rocephin and Flagyl. Continue with analgesics. stable for Dc with oral ABX (2) Hyperlipidemia: Code(s): E78.5 - Hyperlipidemia, unspecified Status: Acute Assessment and Plan: Continue with atorvastatin (3) CVA (cerebral vascular accident): Code(s): I63.9 - Cerebral infarction, unspecified Status: Acute Assessment and Plan: The patient has no residual weakness. The patient is on aspirin. (4) Chronic a-fib: Code(s): I48.20 - Chronic atrial fibrillation, unspecified Status: Acute Assessment and Plan: The patient is in sinus rhythm. Continue with apixaban (5) Diabetes: Code(s): E11.9 - Type 2 diabetes mellitus without complications Status: Acute Assessment and Plan: Continue with glargine and oral medications. (6) Elevated BP without diagnosis of hypertension: Code(s): R03.0 - Elevated blood-pressure reading, without diagnosis of hypertension Status: Acute Assessment and Plan: P.r.n. hydralazine. (7) Hypersomnia: Code(s): G47.10 - Hypersomnia, unspecified Status: Acute Assessment and Plan: Continue with home settings for CPAP the patient stated that he uses Cialis for this. DS: Summary Hospital Course Hospital Course: The patient stated that he was short of breath and fatigue.? The patient has had a history of having a colectomy with the today loop.? Patient stated that he has had an aspirin rectal area.? Is reported that a rectal exam was performed and that there was a mucous discharge.? The patient stated that this is very common.? Chest abdomen pelvis CT was read as followsNo pulmonary embolus. Clear lungs. No acute abnormality in the abdomen or pelvis. Stable postoperative changes of the large bowel, as noted above. Stable prominent/mildly enlarged perirectal and mesenteric lymph nodes. Stability since 2016 suggests benign or indolent process. The patient was started on IV fluids Rocephin and Flagyl.? The patient is being admitted to observation status on the date of service of 04/13/2023. Time Spent with Patient Time attestation: Total time spent providing and/or coordinating discharge services:50 minutes on day of discharge Exam Const: General: cooperative, healthy appearing, comfortable, no acute distress, well developed, awake, Physically active, average body habitus and well nourished Nutritional Appearance: average body habitus and well nourished Orientation/consciousness: oriented to person, oriented to place, oriented to time and patient oriented x3 Limitations: no limitations HENMT: Head: normal to inspection, No palpable skull fracture present, normocephalic, atraumatic and abrasion Ears: hearing grossly normal bilaterally and external ears normal Face/Nose/Sinus: Normal external nose present and Normal nares present Eyes: General: appearance normal, both eyes and all related structures Alignment and Position: alignment normal Periorbital: periorbital findings normal Eyelids: eyelids normal Sclera: sclerae normal Pupils: Equal, round and reactive pupils present EOM: EOMs intact bilaterally Neck: Neck: normal visual inspection, full ROM, no lymphadenopathy, trachea midline and supple Chest: Chest palpation & inspection: normal inspection of the chest Resp: Effort & Inspection: normal respiratory effort Auscultation: clear to auscultation bilaterally Cardio: Palpation: normal PMI Rate: regular rate Rhythm: regular rhythm Heart sounds: S1 normal heart sound present and S2 normal heart sound present Peripheral pulses: Peripheral pulses 2+ th
[2023-04-16 14:34] VITALS: BP 153/90; PULSE 73; RESP 16; TEMP 36.3; O2SAT 100
== END 2023-04-16 15:50 | disposition home or self-care (01) ==
LOC: ANHED 12:53 → ANH2MED 16:27
PROVIDERS: Internal Medicine Gastroenterology; Nurse Practitioner; Preventive Medicine Aerospace Medicine; Admitting Provider Internal Medicine; Emergency Provider General Practice; Visit Provider Hospitalist
PROC: 0DJD8ZZ Inspection of Lower Intestinal Tract, Via Natural or Artificial Opening Endoscopic (ICD-10-PCS; CPT 45330; principal; 2023-04-15 13:45)
DX: K51.90 Ulcerative colitis, unspecified, without complications (principal); K62.89 Other specified diseases of anus and rectum; K91.850 Pouchitis; E11.9 Type 2 diabetes mellitus without complications; I48.20 Chronic atrial fibrillation, unspecified; E78.5 Hyperlipidemia, unspecified; Z90.49 Acquired absence of other specified parts of digestive tract; Z20.822 Contact with and (suspected) exposure to COVID-19; R00.0 Tachycardia, unspecified; D64.9 Anemia, unspecified; R03.0 Elevated blood-pressure reading, without diagnosis of hypertension; G47.10 Hypersomnia, unspecified; E66.9 Obesity, unspecified; Z68.31 Body mass index [BMI] 31.0-31.9, adult; F10.90 Alcohol use, unspecified, uncomplicated; Z86.73 Personal history of transient ischemic attack (TIA), and cerebral infarction without residual deficits; Z79.1 Long term (current) use of non-steroidal anti-inflammatories (NSAID); Z79.4 Long term (current) use of insulin; Z79.84 Long term (current) use of oral hypoglycemic drugs; Z79.82 Long term (current) use of aspirin; Z79.01 Long term (current) use of anticoagulants; Z79.899 Other long term (current) drug therapy; Z83.3 Family history of diabetes mellitus; Z82.49 Family history of ischemic heart disease and other diseases of the circulatory system
CPT/HCPCS: 45331; 36415; 71046; 71275; 74177; 80053; 81001; 82948; 83036; 83605; 83880; 84484; 85025; 85610; 85730; 87040; 87493; 87636; 88305; 93005; 96361; 96365; 96366; 96367; 99285; A9270; G0378; J0696; J1815; J1836; J2704; J7030; J7120; Q9967

== ENCOUNTER 2024-01-28 09:47 | Inpatient (IN) | payer OTHER, SELFPAY ==
[2024-01-28] VITALS (19 sets, daily range): BP systolic 114–151; BP diastolic 71–93; PULSE 75–89; RESP 12–20; TEMP 35.8–37; O2SAT 91–100; BMI 30.1
--- NOTE | 2024-01-28 | ECHO_ITS ---
Patient Info Name: Brian Britton Age: 53 years : 1970 Gender: Male Ht: 72 in Wt: 232 lbs BSA: 2.34 m2 HR: 77 bpm BP: 119 / 81 mmHg Heart Rhythm: Sinus Rhythm Technical Quality: Good Exam Date: 01/28/2024 2:28 PM Exam Location: Echo Lab Patient Status: Inpatient Admit Date: 01/28/2024 Staff Ordering Physician: Jesus Card MD (sabina/jose) [employer] Crewmember: Carina Flower RDCS Attending Provider: Wanda Hall DO Referring Physician: Kyaw MANZANARES; Exam Type: CA echo doppler color flow Study Info Indications - NSTEMI Complete two-dimensional, color flow and Doppler transthoracic echocardiogram is performed with contrast to opacify the left ventricle and to improve the deliniation of the left ventricle endocardial borders. Summary 1. Left ventricular chamber dimension is normal. 2. Left ventricular systolic function is normal, estimated at 60-65%. 3. The basal and mid anterolateral wall appears hypokinetic. 4. The left ventricular diastolic function is grade I diastolic dysfunction. 5. Right ventricular systolic function is normal. 6. No significant valvular disease. Left Ventricle The basal and mid anterolateral wall appears hypokinetic. Left ventricular chamber dimension is normal. Left ventricular systolic function is normal, estimated at 60-65%. There is no increased left ventricular wall thickness. The left ventricular diastolic function is grade I diastolic dysfunction. Right Ventricle Right ventricular chamber dimension is normal. Right ventricular systolic function is normal. Left Atria Left atrial chamber dimension is normal. Right Atria Right atrial chamber dimension is normal. Atrial Septum Intact interatrial septum visualized by color flow imaging. Aortic Valve The aortic valve is trileaflet. There is mild aortic valve sclerosis. There is no aortic valve stenosis. There is no aortic valve regurgitation. Pulmonic Valve The pulmonic valve is not well visualized. Mitral Valve There is trace mitral valve regurgitation. Tricuspid Valve There is trace tricuspid valve regurgitation. Pericardium/Pleural There is no pericardial effusion. Inferior Vena Cava Normal inferior vena cava with >50% collapse upon inspiration consistent with normal right atrial pressure, 3 mmHg. Aorta The aortic root size at the sinus of Valsalva is normal. Left Ventricular Outflow Tract Name Value Normal LVOT 2D LVOT Diameter 2.0 cm LVOT Doppler LVOT Peak Velocity 87 cm/s LVOT Peak Gradient 3 mmHg LVOT Mean Gradient 2 mmHg LVOT VTI 19 cm LVOT VTI/AV VTI Ratio 0.8 LVOT Stroke Volume 63 ml LVOT CO 5.2 l/min LVOT CI 2.2 l/min/m2 Pulmonic Valve Name Value Normal RVOT Doppler RVOT Pea
--- NOTE | ~2024-01-28 | XR_ITS ---
EXAMINATION: XR chest 2V DATE: 01/28/2024 10:14 INDICATION: Right chest pain. TECHNIQUE: Frontal and lateral views of the chest were obtained. COMPARISON: None. FINDINGS: There is no pneumonia, pleural effusion, or pneumothorax. The heart size is normal. There i s mild chronic anterior wedging of multiple vertebral bodies. IMPRESSION: 1. No acute cardiopulmonary disease. Reviewed, dictated and finalized at location A.
--- NOTE | 2024-01-28 09:48 | ED.CHESTPAIN ---
HPI - Chest Pain General Chief Complaint: Chest Pain <Charlie Branham APRN - Last Filed: 01/28/24 11:52> Stated Complaint: CP since Friday <Charlie Branham APRN - Last Filed: 01/28/24 11:52> Time Seen by Provider: 01/28/24 09:48 <Charlie Branham APRN - Last Filed: 01/28/24 11:52> Source: patient <Charlie Branham APRN - Last Filed: 01/28/24 11:52> Mode of arrival: ambulatory <Charlie Branham APRN - Last Filed: 01/28/24 11:52> Limitations: no limitations <Charlie Branham APRN - Last Filed: 01/28/24 11:52> History of Present Illness HPI narrative: Brian is a 53-year-old male patient presenting to the emergency room today with complaints of midsternal chest pain that is radiating to his right and left arm this started on Friday. He reports the pain is worse with movement. Does report some shortness of breath that this is not unusual for him. History of stroke and a fib in the past and is taking Eliquis. Last dose of Eliquis was this morning. Other history included ulcerative colitis, J-pouch, anemia, diabetes,acid reflux,hyperlipedemia, and hypersomnolence. He does not smoke. He drinks occasionally, and denies any recreational drug use. Rates the pain as a persistent annoying pain 1/10 currently but at its worst it is a 5. Had a nuclear med stress test 2 years ago with heart mapping and came out clean. <Charlie Branham APRN - Last Filed: 01/28/24 11:52> Related Data Home Medications: Home Medications Medication Instructions Recorded Confirmed naproxen sodium 220 mg tablet 440 mg PO BID PRN Pain (Scale 10/22/19 01/28/24 (Aleve) Score 1-3) psyllium husk 0.52 gram capsule 0.52 gm PO DAILY 10/22/19 01/28/24 (Metamucil) sitagliptin phosphate 50 1 tablet PO DAILY 10/22/19 01/28/24 mg-metformin 1,000 mg tablet (Janumet) gabapentin 100 mg capsule 300 mg PO BID 04/01/22 01/28/24 pantoprazole 40 mg granules 40 mg PO DAILY 04/01/22 01/28/24 delayed-release for susp in packet (Protonix) apixaban 2.5 mg tablet (Eliquis) 5 mg PO BID 11/04/22 01/28/24 atorvastatin 40 mg tablet 40 mg PO DAILY 11/04/22 01/28/24 insulin glargine 100 unit/mL 40 unit subcut QHS 11/04/22 01/28/24 subcutaneous solution (Lantus U-100 Insulin) aspirin 81 mg tablet 81 mg PO DAILY 04/13/23 01/28/24 <Charlie Branham APRN - Last Filed: 01/28/24 11:52> Allergies/Adverse Reactions: Allergies Allergy/AdvReac Type Severity Reaction Status Date / Time Penicillins Allergy Unknown Unknown Verified 08/25/23 15:12 <Charlie Branham APRN - Last Filed: 01/28/24 11:52> Review of Systems Review of Systems: Pertinent positives per HPI. Patient denies any fever, chills, rash, headache, visual changes, dizziness, cough, runny nose, sore throat,palpitations, nausea, vomiting, diarrhea, constipation, abdominal pain, or any urinary issues. <Charlie Branham APRN - Last Filed: 01/28/24 11:52> [facility] Past Medical History Medical History: Medical History (Updated 01/28/24 @ 14:33 by Ramila Wheeler APRN) Anemia Body mass index (bmi) 31.0-31.9, adult (10/19/18) CVA (cerebral vascular accident) Diabetes Hyperlipidemia Kidney stone Pouchitis Ulcerative colitis <Charlie Branham APRN - Last Filed: 01/28/24 11:52> Surgical History Surgical History: Surgical History H/O colectomy H/O hernia repair History of ankle surgery History of tonsillectomy History of total colectomy <Charlie Branham APRN - Last Filed: 01/28/24 11:52> Family History Family History: Family History Mother Diabetes mellitus Family history of congestive heart failure Father Family history of cardiovascular disease <Charlie Branham, [employer]ER - Last Filed: 01/28/24 11:52> Social History Social History: Social History (Reviewed 01/28/24 @ 14:06 by Ri
--- NOTE | 2024-01-28 09:54 | ECG_ITS ---
Measurements Intervals [place] Rate: 85 P: 49 MO: 142 QRS: 52 QRSD: 94 T: 50 QT: 332 Avg RR 699 QTc: 375 QTcB 397 QTcF 374 Interpretive Statements SINUS RHYTHM NORMAL ECG SEE SCANNED COPY FOR SIGNATURE MTDD
[2024-01-28] MEDS: ASPIRIN 81 MG CHEWABLE TABLET 324 MG PO (10:04)
[2024-01-28 10:15] LABS: Basophils Absolute Auto 0.1 K/mm3 (0.0-0.1); Basophils Percent Auto 0.7 % (0.2-1.2); Eosinophils Absolute Auto 0.1 K/mm3 (0-0.3); Hematocrit 43.7 % (42.0-52.0); Hemoglobin 13.5 g/dL (14.0-18.0); Immature Granulocyte Absolute 0.04 K/mm3 (0.00-0.031); Immature Granulocyte Percent A 0.4 % (0-0.5); Lymphocytes Absolute Auto 1.55 K/mm3 (0.9-3.2); Lymphocytes Percent Auto 14.7 % (18.3-44.2); Mean Corpuscular HGB Conc 30.9 g/dl (32-36); Mean Corpuscular Volume 71.2 fl (80-100); Mean Platelet Volume 9.1 fl (7.4-10.4); Monocytes Absolute Auto 0.9 K/mm3 (0.1-0.6); Monocytes Percent Auto 8.6 % (2.6-8.5); Neutrophils Absolute Auto 7.9 K/mm3 (1.3-6.7); Neutrophils Percent Auto 74.6 % (45.5-73.1); Platelet Count Result 276 k/mm3 (150-375); Red Blood Count 6.14 M/mm3 (4.6-6.20); Red Cell Distribution Width 23.4 % (11.5-14.5); White Blood Count 10.6 K/mm3 (4.5-10.0)
[2024-01-28 10:25] LABS: INR 1.1
[2024-01-28 10:26] LABS: Partial Thromboplastin Time 31.1 Seconds (22.3-36.8)
[2024-01-28 10:29] LABS: Alanine Aminotransferase 27 U/L (6-50); Albumin Level 4.6 g/dL (3.5-5.1); Alkaline Phosphatase 105 U/L (38-126); Anion Gap 9 mmol/L (4-12); Aspartate Amino Transferase 54 U/L (17-59); Bilirubin,Total 0.7 mg/dL (0.2-1.3); Blood Urea Nitrogen 15 mg/dL (9-20); Calcium 9.5 mg/dL (8.4-10.2); Carbon Dioxide 24 mmol/L (22-30); Chloride 106 mmol/L (98-107); Estimated CRCL calculation 86 ml/min; Estimated Glomerular Filt Rate > 60; Glucose 248 mg/dL (65-110); Lipase 86 U/L (23-300); Potassium 4.3 mmol/L (3.4-5.0); Sodium 139 mmol/L (137-145)
[2024-01-28 10:39] LABS: NT Pro B Type Natriuretic Pept 1060 pg/mL (19.9-100)
[2024-01-28 10:45] LABS: D Dimer 0.31 ug/mL (<0.48)
[2024-01-28 10:50] LABS: Anisocytosis 1+; Hypochromasia 1+; Microcytosis 1+ (NORMAL); Platelet Estimate Adequate (Adequate); Schistocytes None Seen
[2024-01-28] MEDS: HEPARIN SODIUM 5,000 UNITS/ML VIAL 4000 UNITS IV PUSH ×2 (11:17→17:36)
[2024-01-28] MEDS: NITROGLYCERIN OINTMENT 1 INCH DOSE TRANSDERM (11:17)
[2024-01-28] MEDS: HEPARIN SOD/D5W 100 UNITS/ML 25,000 UNITS/250 ML BAG 10 UNITS IV CONT (11:17)
--- NOTE | 2024-01-28 12:03 | ADMGEN ---
This patient, Brian Britton, was admitted to IMU Room 201-01. Patient/family oriented to hospital policies and general routines including ID bracelet, bed and alarms, visiting hours, pain management, procedures, bathroom and other care routines, personal items, smoking policy, room service/diet, and visiting hours. Information on how to activate the Rapid Response Team has been discussed. Patient/Family are encouraged to report perceived risks to care and to ask questions if they do not understand what they are told or what they should do.
--- NOTE | 2024-01-28 12:32 | PM.IMHP ---
H&P: HPI History of Present Illness Date/Time: 01/28/24 12:32 Chief Complaint: Chest Pain Narrative: 53 y/o M presents here with chest pain with PMH of anemia, CVA (May 2022, initially R hand/R leg weakness and underwent PT/OT, now no deficits), DM, ulcerative colitis s/p total colectomy, narcolepsy, and kidney stones. Patient presented here from home via private vehicles for further evaluation of midsternal chest pain. Patient describes the chest pain as tight, with associated radiation down his right and left arm, and persistent w/varying levels of intensity. R arm discomfort worse than left. Pain began on Friday at 1030 am after patient completed walking back from a meeting and was at rest. Worsens with movement (nothing specific) walking this morning caused the chest pain to reoccur and alleviated by rest but not consistently. Reports associated mild diaphoresis. Patient is currently on Eliquis secondary to his known AFib and hx of CVA, reports compliance with medication and last dose was taken this morning. Last cardiac evaluation in January 2023, had nuclear stress test and no blockages/abnormalities found and saw a art consultant at [facility] for follow-up after his CVA. No previous history of VA or previous episodes of similar pain. Pain has since been relieved with nitro paste and 324 of ASA, however there is still an odd' sensation in the same area the discomfort was in prior to interventions. Initial VS at presentation: 98.6? F, HR 88, RR 20, 151/93, and 96% on RA. ED workup showed: WBC 10.6, Hgb 13.5, INR 1.1, D-dimer negative, creatinine 1.0 with GFR of >60, glucose 248, initial troponin 5.780, and BNP 1060. CXR showed no acute cardiopulmonary disease. Review of Systems Review of Systems: All systems reviewed & are unremarkable except as noted in HPI and below [facility] Past Medical History Medical History (Updated 01/28/24 @ 14:33 by Ramila Wheeler APRN) Anemia Body mass index (bmi) 31.0-31.9, adult (10/19/18) CVA (cerebral vascular accident) Diabetes Hyperlipidemia Kidney stone Pouchitis Ulcerative colitis Surgical History Surgical History H/O colectomy H/O hernia repair History of ankle surgery History of tonsillectomy History of total colectomy Family History Family History Mother Diabetes mellitus Family history of congestive heart failure Father Family history of cardiovascular disease Social History Social History Social History: He lives with and has 3 children .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 Lifelong nonsmoker. Does not use any marijuana or illicit drugs. His is the durable power senior attorney for healthcare. Code status full code Smoking status: Never smoker Alcohol intake: never Drinks per week: 0 Substance use: never Substance use type: does not use Do You Feel Safe in your Home?: Yes Lack of Transportation: No Lack of Food: Never True Current Housing: I Have Housing Concerned About Future Housing: No Difficulty Paying Gas/Electric Bills: No Difficulty Paying for Meds: No Currently Unemployed: No Education: High School Diploma/GED Difficulty w/ Childcare or Family Care: No Spiritual care concerns: No Meds Home Medications and Allergies Home Medications Medication Instructions Recorded Confirmed Type naproxen sodium 220 mg tablet 440 mg PO BID PRN Pain (Scale 10/22/19 01/28/24 History (Aleve) Score 1-3) psyllium husk 0.52 gram capsule 0.52 gm PO DAILY 10/22/19 01/28/24 History (Metamucil) sitagliptin phosphate 50 1 tablet PO DAILY 10/22/19 01/28/24 History mg-metformin 1,000 mg tablet (Janumet) gabapentin 100 mg capsule 300 mg PO BID 04/01/22 01/28/24 History pantoprazole 40 mg granules 40 mg PO DAILY 04/01/22 01/28/24 History delayed-release for zeyad
--- NOTE | 2024-01-28 14:00 | PM.CNCAR ---
Assessment and Plan Assessment and plan (1) Acute non-ST elevation myocardial infarction (NSTEMI): Code(s): I21.4 - Non-ST elevation (NSTEMI) myocardial infarction Status: Acute Assessment and Plan: Given NSTEMI, recommend cardiac catheterization. Discussed indication for the procedure, procedure details, risks vs benefits, etc. with the patient. Patient is agreeable to proceed. Since patient took his Eliquis 4/10 AM, will plan for LHC to be done on Monday 01/29. NPO order for 01/29 midnight placed. Continue to trend troponins until peak. Continue Heparin drip. Continue ASA 81mg once daily. Continue Atorvastatin 40mg once daily. Continue NTG patch. Will start Toprol. Will hold off on starting P2Y12 inhibitor as patient is a diabetic and therefore higher risk of having multivessel disease (which would necessitate a CT Surgery consultation). Check Hgb A1c, TSH, lipid panel. Echocardiogram ordered and pending. (2) Hyperlipidemia: Code(s): E78.5 - Hyperlipidemia, unspecified Status: Acute Assessment and Plan: Will check lipid panel. Continue high intensity statin. (3) CVA (cerebral vascular accident): Code(s): I63.9 - Cerebral infarction, unspecified Status: Acute Assessment and Plan: Continue ASA, statin. (4) Paroxysmal atrial fibrillation: Code(s): I48.0 - Paroxysmal atrial fibrillation Status: Acute Assessment and Plan: In sinus. Holding Eliquis in preparation for LHC. Plan Recommendations and plan discussed with Hospitalist. History of Present Illness History of Present Illness Consult date/time: 01/28/24 14:00 Requesting physician: Charlie Branham APRN Consult reason: chest pain Reason For Visit: NSTEMI Narrative: We are consulted for an NSTEMI. This is a 53 year old male with diabetes, history of CVA, paroxysmal atrial fibrillation on Eliquis, hyperlipidemia, ulcerative colitis, history of colectomy (has a J pouch) who presented to [place] ER for chest pain. Chest pain started on Friday. He had just completed a quarter mile walk. Developed substernal chest pain with radiation down the right arm. Chest pain has been constant since then, although waxes and wanes. Patient states that his chest pain was 5/10 at the worst, was 1/10 in the ER. EKG with sinus rhythm without ischemic changes. Initial troponin is 5.780. NTG patch placed in the ER. Took Eliquis this morning. Was seeing Dr. Bradley with [facility]. Transthoracic echocardiogram 01/2023 showed: LVEF 60-65%, grade 1 diastolic dysfunction, mild cLVH, mild ascending aortic enlargement at 4.0cm MPI stress test 01/2023 showed: Negative EKG stress test, normal stress myocardial perfusion, normal LVSF. Review of Systems Review of Systems: All systems reviewed & are unremarkable except as noted in HPI and below (HPI) [facility] Past Medical History Medical History (Updated 01/28/24 @ 14:07 by Jesus Card MD) Anemia Body mass index (bmi) 31.0-31.9, adult (10/19/18) CVA (cerebral vascular accident) Diabetes Hyperlipidemia Kidney stone Pouchitis Ulcerative colitis Surgical History Surgical History H/O colectomy H/O hernia repair History of ankle surgery History of tonsillectomy History of total colectomy Family History Family History Mother Diabetes mellitus Family history of congestive heart failure Father Family history of cardiovascular disease Social History Social History Social History: He lives with and has 3 children .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 Lifelong nonsmoker. Does not use any marijuana or illicit drugs. His is the durable power consumer attorney for healthcare. Code status full code Smoking status: Never smoker Alcohol intake: never Drinks pe
[2024-01-28] MEDS: METOPROLOL SUCCINATE EXT REL 25 MG TABCR PO (14:01)
[2024-01-28 16:22] LABS: Glucose Point of Care 248 mg/dl (65-105)
[2024-01-28] MEDS: MORPHINE SULFATE (*CRX) 2 MG/ML INJ IV PUSH (16:47)
[2024-01-28] MEDS: GABAPENTIN 300 MG CAPSULE PO (16:48)
[2024-01-28] MEDS: INSULIN ASPART (*BKC) 100 UNITS/ML SUB-Q ×2 (16:48→20:19)
[2024-01-28 16:53] LABS: Basophils Percent Auto 0.4 % (0.2-1.2); Eosinophils Absolute Auto 0.1 K/mm3 (0-0.3); Eosinophils Percent Auto 1.1 % (0-4.4); Hematocrit 39.7 % (42.0-52.0); Hemoglobin 12.1 g/dL (14.0-18.0); Immature Granulocyte Absolute 0.02 K/mm3 (0.00-0.031); Immature Granulocyte Percent A 0.2 % (0-0.5); Lymphocytes Absolute Auto 2.01 K/mm3 (0.9-3.2); Lymphocytes Percent Auto 22.6 % (18.3-44.2); Mean Corpuscular HGB Conc 30.5 g/dl (32-36); Mean Corpuscular Hemoglobin 22.2 pg (26-34); Mean Corpuscular Volume 72.7 fl (80-100); Mean Platelet Volume 9.3 fl (7.4-10.4); Monocytes Absolute Auto 0.9 K/mm3 (0.1-0.6); Monocytes Percent Auto 9.6 % (2.6-8.5); Neutrophils Absolute Auto 5.9 K/mm3 (1.3-6.7); Neutrophils Percent Auto 66.1 % (45.5-73.1); Platelet Count Result 240 k/mm3 (150-375); Red Blood Count 5.46 M/mm3 (4.6-6.20); Red Cell Distribution Width 23.5 % (11.5-14.5); White Blood Count 8.9 K/mm3 (4.5-10.0)
--- NOTE | 2024-01-28 17:01 | ECG_ITS ---
Measurements Intervals [place] Rate: 76 P: 24 SC: 150 QRS: 17 QRSD: 77 T: -5 QT: 359 QTc: 390 Interpretive Statements SINUS RHYTHM NORMAL ECG SEE SCANNED COPY FOR SIGNATURE MTDD
[2024-01-28 17:05] LABS: INR 1.2; Prothrombin Time 15.3 Seconds (11.1-14.7)
[2024-01-28 17:50] LABS: Hemoglobin A1C 9.8 % (<5.7)
[2024-01-28 17:51] LABS: Platelet Estimate Adequate (Adequate); Schistocytes None Seen
[2024-01-28 17:52] LABS: Anisocytosis 3+; Hypochromasia 1+
[2024-01-28 20:14] LABS: Glucose Point of Care 237 mg/dl (65-105)
[2024-01-28 20:16] LABS: Cholesterol 112 mg/dL (0-200); HDL Direct 33 mg/dL; Triglycerides 317 mg/dL (<150)
[2024-01-28] MEDS: INSULIN GLARGINE (*BKC) 100 UNITS/ML 40 UNITS SUB-Q (20:19)
[2024-01-28 20:29] LABS: LDL Cholesterol Direct 60 mg/dL
[2024-01-28 20:49] LABS: Thyroid Stimulating Hormone 0.455 uIU/mL (0.465-4.680)
[2024-01-29] VITALS (14 sets, daily range): BP systolic 109–141; BP diastolic 67–82; PULSE 62–99; RESP 12–24; TEMP 36.1–36.7; O2SAT 95–98
[2024-01-29 00:18] LABS: Partial Thromboplastin Time 56.6 Seconds (22.3-36.8)
[2024-01-29] MEDS: HEPARIN SODIUM 5,000 UNITS/ML VIAL 3500 UNITS IV PUSH (00:35)
[2024-01-29 04:50] LABS: Basophils Absolute Auto 0.1 K/mm3 (0.0-0.1); Basophils Percent Auto 0.9 % (0.2-1.2); Eosinophils Absolute Auto 0.1 K/mm3 (0-0.3); Eosinophils Percent Auto 1.8 % (0-4.4); Hemoglobin 12.6 g/dL (14.0-18.0); Immature Granulocyte Absolute 0.02 K/mm3 (0.00-0.031); Immature Granulocyte Percent A 0.3 % (0-0.5); Immature Platelet Fraction Pct 3.1 % (0.9-11.2); Lymphocytes Absolute Auto 2.14 K/mm3 (0.9-3.2); Lymphocytes Percent Auto 27.1 % (18.3-44.2); Mean Corpuscular Hemoglobin 21.6 pg (26-34); Mean Corpuscular Volume 72.2 fl (80-100); Mean Platelet Volume 9.4 fl (7.4-10.4); Monocytes Absolute Auto 0.9 K/mm3 (0.1-0.6); Monocytes Percent Auto 11.3 % (2.6-8.5); Neutrophils Absolute Auto 4.6 K/mm3 (1.3-6.7); Neutrophils Percent Auto 58.6 % (45.5-73.1); Platelet Count Result 249 k/mm3 (150-375); Red Blood Count 5.82 M/mm3 (4.6-6.20); Red Cell Distribution Width 23.8 % (11.5-14.5); White Blood Count 7.9 K/mm3 (4.5-10.0)
[2024-01-29 05:03] LABS: Partial Thromboplastin Time 106.3 Seconds (22.3-36.8)
[2024-01-29 05:05] LABS: Alanine Aminotransferase 24 U/L (6-50); Albumin Level 4.1 g/dL (3.5-5.1); Alkaline Phosphatase 84 U/L (38-126); Anion Gap 5 mmol/L (4-12); Aspartate Amino Transferase 46 U/L (17-59); Bilirubin,Total 0.6 mg/dL (0.2-1.3); Blood Urea Nitrogen 14 mg/dL (9-20); Calcium 9.3 mg/dL (8.4-10.2); Carbon Dioxide 28 mmol/L (22-30); Chloride 105 mmol/L (98-107); Estimated CRCL calculation 95 ml/min; Estimated Glomerular Filt Rate > 60; Glucose 141 mg/dL (65-110); Potassium 4.1 mmol/L (3.4-5.0); Sodium 138 mmol/L (137-145)
[2024-01-29 05:25] LABS: Hemoglobin A1C 9.8 % (<5.7)
[2024-01-29] MEDS: HEPARIN SOD/D5W 100 UNITS/ML 25,000 UNITS/250 ML BAG 16 UNITS IV CONT ×2 (05:39→21:41)
[2024-01-29] MEDS: ACETAMINOPHEN 325 MG TABLET 650 MG PO ×2 (05:40→20:29)
[2024-01-29 06:14] LABS: Free T4 Free Thyroxine 0.89 ng/mL (0.78-2.19)
[2024-01-29 06:25] LABS: Total Triiodothyronine (T3) 1.45 NG/ML (0.97-1.69)
[2024-01-29 08:03] LABS: Glucose Point of Care 160 mg/dl (65-105)
[2024-01-29] MEDS: ATORVASTATIN 40 MG TABLET PO (08:39)
[2024-01-29] MEDS: PANTOPRAZOLE 40 MG TABLET PO (08:39)
[2024-01-29] MEDS: GABAPENTIN 300 MG CAPSULE PO ×2 (08:39→16:35)
[2024-01-29] MEDS: ASPIRIN 81 MG ENTERIC TABLET PO (08:40)
[2024-01-29] MEDS: METOPROLOL SUCCINATE EXT REL 25 MG TABCR PO (08:40)
[2024-01-29] MEDS: PSYLLIUM SUGAR FREE POWDER PACKET 1 PACKET PO (08:40)
[2024-01-29] MEDS: NITROGLYCERIN 0.4 MG/HR PATCH 1 PATCH TRANSDERM (10:16)
[2024-01-29] MEDS: NITROGLYCERIN 0.2 MG/HR PATCH 1 PATCH TRANSDERM (10:17)
--- NOTE | 2024-01-29 10:41 | PM.PNCARD ---
Progress Note: A&P Assessment and Plan (1) Acute non-ST elevation myocardial infarction (NSTEMI): Code(s): I21.4 - Non-ST elevation (NSTEMI) myocardial infarction Status: Acute Assessment and Plan: Concerning chest pain with elevated troponins with a peak of 8.390. Echocardiogram with LVEF 60-65%, the basal and mid anterolateral wall appears hypokinetic. Given NSTEMI, recommend cardiac catheterization. Discussed indication for the procedure, procedure details, risks vs benefits, etc. with the patient. Patient is agreeable to proceed. Since patient took his Eliquis 4/10 AM, will plan for LHC to be done on Monday 01/[address] Avelar. NPO order for 01/29 midnight placed. Continue Heparin drip. Continue ASA 81mg once daily. Continue Atorvastatin 40mg once daily. LDL is 60. Continue NTG patch. Started Toprol, continue Will hold off on starting P2Y12 inhibitor as patient is a diabetic (Hgb A1c 9.8) and therefore higher risk of having multivessel disease (which would necessitate a CT Surgery consultation). (2) Hyperlipidemia: Code(s): E78.5 - Hyperlipidemia, unspecified Status: Acute Assessment and Plan: LDL 60. Continue high intensity statin. (3) CVA (cerebral vascular accident): Code(s): I63.9 - Cerebral infarction, unspecified Status: Acute Assessment and Plan: Continue ASA, statin. (4) Paroxysmal atrial fibrillation: Code(s): I48.0 - Paroxysmal atrial fibrillation Status: Acute Assessment and Plan: In sinus. Holding Eliquis in preparation for LHC. (5) Diabetes: Qualifiers: Diabetes mellitus type: type 2 Diabetes mellitus terminal worker insulin use: with fci use Diabetes mellitus complication status: without complication Qualified Code(s): E11.9 - Type 2 diabetes mellitus without complications; Z79.4 - FDC (current) use of insulin Code(s): E11.9 - Type 2 diabetes mellitus without complications Status: Acute Assessment and Plan: Patient reports that his Hgb A1c was 12.9. He was on insulin at that time already, but had poor diet. He has been working on that since then and his A1c is now down to 9.8 this admission. Management of diabetes as per primary team. Plan Recommendations and plan were discussed with Hospitalist. Subjective Date/time seen: 01/29/24 10:41 Interval history: Reason for visit: NSTEMI HPI: We are consulted for an NSTEMI. This is a 53 year old male with diabetes, history of CVA, paroxysmal atrial fibrillation on Eliquis, hyperlipidemia, ulcerative colitis, history of colectomy (has a J pouch) who presented to [place] ER for chest pain. Chest pain started on Friday. He had just completed a quarter mile walk. Developed substernal chest pain with radiation down the right arm. Chest pain has been constant since then, although waxes and wanes. Patient states that his chest pain was 5/10 at the worst, was 1/10 in the ER. EKG with sinus rhythm without ischemic changes. Initial troponin is 5.780. NTG patch placed in the ER. Took Eliquis this morning. Was seeing Dr. Bradley with [facility]. Transthoracic echocardiogram 01/2023 showed: LVEF 60-65%, grade 1 diastolic dysfunction, mild cLVH, mild ascending aortic enlargement at 4.0cm. MPI stress test 01/2023 showed: Negative EKG stress test, normal stress myocardial perfusion, normal LVSF. Date of service 01/28: No recurrence of chest pain since getting Morphine yesterday. Feeling well otherwise. Tele without any arrhythmias. Review of Systems Review of Systems: All systems reviewed & are unremarkable except as noted in HPI and below (HPI) Exam Const: General: comfortable and no acute distress HENMT: Mouth: Yes moist mucous membranes Eyes: General: appearance normal, both eyes and all related structures Sclera: sclerae normal Resp: Effort & Inspection: normal respiratory effort Cardio: Rate: regular rate Rhythm: regular rhythm Skin:
[2024-01-29 10:54] LABS: Partial Thromboplastin Time 71.9 Seconds (22.3-36.8)
[2024-01-29 11:21] LABS: Glucose Point of Care 283 mg/dl (65-105)
[2024-01-29] MEDS: INSULIN ASPART (*BKC) 100 UNITS/ML SUB-Q (11:23)
--- NOTE | 2024-01-29 13:02 | PM.IMPN ---
Progress Note: A&P Assessment and Plan (1) Acute non-ST elevation myocardial infarction (NSTEMI): Code(s): I21.4 - Non-ST elevation (NSTEMI) myocardial infarction Status: Acute Assessment and Plan: Patient presents with chest pain. EKG normal. CXR showing no acute cardiopulmonary disease. Troponin peaked at 8.4. Heparin drip started. Echo showing EF 60-65% with basal abd mid anterolateral hypokinesis and Grade I diastolic dysfunction Lipid panel showing TG 317, TC 112, LDL 60 and HDL 33. Remains on ASA, Toprol, Lipitor and NTG patch Cardiology consulted with plan for cardiac cath on Friday, 01/29 Continue telemetry monitoring (2) Diabetes: Qualifiers: Diabetes mellitus type: type 2 Diabetes mellitus terminal superintendent insulin use: with terminal superintendent use Diabetes mellitus complication status: without complication Qualified Code(s): E11.9 - Type 2 diabetes mellitus without complications; Z79.4 - remote computer terminal operator (current) use of insulin Code(s): E11.9 - Type 2 diabetes mellitus without complications Status: Acute Assessment and Plan: A1c 9.8. The patient's blood glucose was reviewed on 01/28 Glucose better controlled. Continue AccuCheks covering with sliding scale. Hypoglycemia protocol available as needed. Continue to monitor. Plan Hx of CVA - Continue ASA and lipitor. UC - s/p colectomy and J pouch. Continue metamucil for bulking. DVT Prophylaxis: heparin gtt Code Status: Full Code Subjective Date/time seen: 01/29/24 13:02 Interval history: 53yo male with UC s/p colectomy and J-pouch, CVA and DM here for chest pain. He feels well. No CP or SOB. No n/v. Exam Narrative: AF 96.9 109/69 66 14 96%ra Gen - NARD Chest - CTA bilaterally, nml RR CV - RRR S1/S2. Tele showing no alarms Abd - Soft, NT/ND, Positive BS Ext - No pedal edema Psych - Nml mood and affect Skin - Warm and dry Objective Data Vital Signs Vital Signs: Vital Signs - 24 hr 01/28/24 14:00 01/28/24 14:01 01/28/24 15:33 Temperature 97.4 F L Pulse Rate 86 80 84 Respiratory Rate 18 Blood Pressure 114/71 Pulse Oximetry 96 Oxygen Delivery 01/28/24 16:00 01/28/24 18:00 01/28/24 20:04 Temperature 97.5 F L Pulse Rate 78 83 78 Respiratory Rate 18 Blood Pressure 127/81 Pulse Oximetry 98 Oxygen Delivery 01/28/24 23:11 01/28/24 20:00 01/28/24 22:00 Temperature 97.9 F Pulse Rate 77 89 75 Respiratory Rate 18 Blood Pressure 125/87 Pulse Oximetry 91 Oxygen Delivery 01/29/24 00:00 01/29/24 02:00 01/29/24 04:00 Temperature 98.1 F Pulse Rate 71 65 70 Respiratory Rate 14 Blood Pressure 141/81 H Pulse Oximetry 98 Oxygen Delivery 01/29/24 04:00 01/29/24 06:00 01/29/24 08:00 Temperature 97.5 F L Pulse Rate 64 64 62 Respiratory Rate 12 Blood Pressure 131/82 Pulse Oximetry 96 Oxygen Delivery 01/29/24 08:40 01/29/24 08:00 01/29/24 08:00 Temperature Pulse Rate 69 73 Respiratory Rate Blood Pressure Pulse Oximetry Oxygen Delivery Room Air 01/29/24 10:00 01/29/24 11:30 01/29/24 12:00 Temperature 96.9 F L Pulse Rate 80 64 66 Respiratory Rate 14 Blood Pressure 109/69 Pulse Oximetry 96 Oxygen Delivery 01/29/24 12:00 Temperature Pulse Rate Respiratory Rate Blood Pressure Pulse Oximetry Oxygen Delivery Room Air Intake/Output Intake/Output: Intake & Output 01/26/24 01/27/24 01/28/24 01/29/24 23:59 23:59 23:59 23:59 Intake Total 603.2 1026.0 Balance 603.2 1026.0 Meds/Results Medications: Active Medications Generic Name Dose Route Start Last Admin Trade Name Freq PRN Reason Stop Dose Admin Acetaminophen 650 mg 01/28/24 23:43 01/29/24 05:40 Acetaminophen 325 Mg Tablet PO 650 mg Q6H PRN Administration Mild Pain (1-3) or Fever Aspirin 81 mg 01/29/24 09:00 01/29/24 08:40 Aspirin 81 Mg Enteric Tablet PO 81 mg QAM SC
--- NOTE | 2024-01-29 13:54 | PC.NURSE ---
On 01/29/24, the student, [Dale Davidson ], provided care and completed [facility] documentation on this patient. I have reviewed the student's documentation and agree with the findings.
[2024-01-29 16:03] LABS: Glucose Point of Care 199 mg/dl (65-105)
[2024-01-29 20:22] LABS: Glucose Point of Care 282 mg/dl (65-105)
[2024-01-29] MEDS: INSULIN GLARGINE (*BKC) 100 UNITS/ML 20 UNITS SUB-Q (20:25)
[2024-01-30] VITALS (27 sets, daily range): BP systolic 106–157; BP diastolic 68–100; PULSE 66–89; RESP 12–20; TEMP 36.2–36.9; O2SAT 93–100
[2024-01-30 04:26] LABS: Anion Gap 7 mmol/L (4-12); Blood Urea Nitrogen 15 mg/dL (9-20); Calcium 9.3 mg/dL (8.4-10.2); Carbon Dioxide 23 mmol/L (22-30); Chloride 106 mmol/L (98-107); Estimated CRCL calculation 86 ml/min; Estimated Glomerular Filt Rate > 60; Glucose 261 mg/dL (65-110); Potassium 3.9 mmol/L (3.4-5.0); Sodium 136 mmol/L (137-145)
[2024-01-30 04:27] LABS: Partial Thromboplastin Time 82.9 Seconds (22.3-36.8)
[2024-01-30 04:47] LABS: Glucose Point of Care 215 mg/dl (65-105)
[2024-01-30 07:44] LABS: Glucose Point of Care 173 mg/dl (65-105)
[2024-01-30] MEDS: PANTOPRAZOLE 40 MG TABLET PO (09:20)
[2024-01-30] MEDS: GABAPENTIN 300 MG CAPSULE PO ×2 (09:20→16:49)
[2024-01-30] MEDS: PSYLLIUM SUGAR FREE POWDER PACKET 1 PACKET PO (09:20)
[2024-01-30] MEDS: ASPIRIN 81 MG ENTERIC TABLET PO (09:20)
[2024-01-30] MEDS: ATORVASTATIN 40 MG TABLET PO (09:20)
[2024-01-30] MEDS: METOPROLOL SUCCINATE EXT REL 25 MG TABCR PO (09:20)
--- NOTE | 2024-01-30 09:34 | PC.NURSE ---
Patient transported to cathode ray tube assembler via stretcher. Heparin gtt paused, IV saline locked. NTG patch not administered per cathode ray tube assembler RN.
[2024-01-30 10:42] LABS: Activated Clotting Time 147 SEC (74-137)
--- NOTE | 2024-01-30 10:44 | WPDCARDPROC ---
Cardiac Cath Procedure Note Date of procedure:: 01/30/24 Performing physician:: Gama Avelar MD Indication:: non ST-elevation [place] Brief clinical history:: this is a 53-year-old gentleman with a history of diabetes who entered the hospital earlier this week with an episode of chest pain and a moderate rise in his troponin level. His electrocardiogram looked unremarkable. He has no overt history of coronary disease prior to this. He was anticoagulated apixaban because of a history of atrial fibrillation. That has been stopped for 48 hours and he is now being brought for coronary angiography. Procedure Procedure performed:: Left ventriculogram coronary angiography Sedation/Medication given:: fentanyl 50 mg Versed 2 mg case start time 10:03 a.m. case end time 10:33 a.m. sedation provided by Polly Cullen RN, trained observer Access site:: right femoral artery Estimated blood loss:: 25 cc Procedure note:: patient was brought to the cardiac catheterization lab in postabsorptive state where the right femoral triangle was prepared and draped in the normal fashion. Anesthesia was provided with 15 cc of lidocaine infiltrated locally. Following this the femoral artery was punctured and a 5 Irish vascular sheath was placed. A 5 Irish angled pigtail catheter was used then to measure left-sided hemodynamics and pullback pressures across the aortic valve as well as to inject the left ventriculogram in the ER AO projection. Following this the left coronary artery was engaged and injected using a 5 Irish FL4 catheter. The FL4 catheter initially folded over the aortic root with the assistance of the over 3 5 guidewire the left main was engaged and left coronary angiography was it completed. Following this the right coronary artery was engaged and injected using a 5 Irish AL1 catheter as a JR4 catheter was not satisfactory to engage the artery for angiography. Cineangiograms were then and the case was terminated the patient was taken to the area for sheath. He tolerated the procedure well there were no apparent complications Findings:: hemodynamics: Central aortic pressure is 148 over 80 left ventricle 148/0 end-diastolic 12 there is gradient across the aortic valve upon pullback. Left ventricle: The basal to midportion of the inferior wall is akinetic. The diaphragmatic segment the apex and the anterolateral christianson contract well. The global ejection fraction is 50% the left main coronary artery is large in caliber and nicely patent the left anterior descending is a moderate caliber artery with some proximal calcium. There are no high-grade lesions in the proximal segment of the LAD there is a 90% stenosis about 3/4 of the length down toward the apex. There is NAVJOT 3 flow in the vessel the LAD does wrap around the apex and provides some inferior myocardium as well. A proximal diagonal branch has a irregular proximal 60-70% stenosis. Circumflex is a medium caliber artery giving rise to the marginal branches. After the 1st marginal branch the circumflex trunk has a fairly discrete 90% stenosis the right coronary artery has a uncommon anterior high takeoff and has subtotal stenosis in the 2nd portion of the RCA and possibly a total occlusion in the end of this area of disease with both antegrade and retrograde collateral filling to the RPDA and RPL branches. An AL1 catheter was used to perform these angiograms as mentioned above. Conclusion:: 1. Right coronary dominant circulation with significant three-vessel coronary disease with the culprit lesion for this presentation likely being the high-grade mid circumflex stenosis. There is discrete 90% stenosis in the trunk of the circumflex as detailed above 2. subtotal stenosis with likely [employer] of the 2nd portion of the right coronary artery which receives both antegrade and retrograde collateral filling. The origin of the right coronary artery is high and anter
[2024-01-30] MEDS: SODIUM CHLORIDE 0.9% IV 1,000 ML 125 ML IV CONT (12:45)
--- NOTE | 2024-01-30 14:46 | PM.TDS ---
Transfer Discharge Sum: Prov Provider Date of admission: 01/28/24 11:04 Primary care physician: [facility] Admitting clinician: Delmar Hall DO Consults: 01/28/24 11:05 Consult to Physician Routine Comment: Consulting Provider: Jesus Card call center specialist/MD group to consult: Dr. 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 Code(s): E11.9 - Type 2 diabetes mellitus without complications Status: Acute Transfer Discharge Sum: Med Medications Active and Home Medications: Home Medications naproxen sodium 220 mg tablet (Aleve) 440 mg PO BID PRN Pain (Scale Score 1-3) 10/22/19 [History Confirmed 01/28/24] psyllium husk 0.52 gram capsule (Metamucil) 0.52 gm PO DAILY 10/22/19 [History Confirmed 01/28/24] sitagliptin phosphate 50 mg-metformin 1,000 mg tablet (Janumet) 1 tablet PO DAILY 10/22/19 [History Confirmed 01/28/24] gabapentin 100 mg capsule 300 mg PO BID 04/01/22 [History Confirmed 01/28/24] pantoprazole 40 mg granules delayed-release for susp in packet (Protonix) 40 mg PO DAILY 04/01/22 [History Confirmed 01/28/24] apixaban 2.5 mg tablet (Eliquis) 5 mg PO BID 11/04/22 [History Confirmed 01/28/24] atorvastatin 40 mg tablet 40 mg PO DAILY 11/04/22 [History Confirmed 01/28/24] insulin glargine 100 unit/mL subcutaneous solution (Lantus U-100 Insulin) 40 unit subcut QHS 11/04/22 [History Confirmed 01/28/24] aspirin 81 mg tablet 81 mg PO DAILY 04/13/23 [History Confirmed 01/28/24] modafinil 200 mg tablet 200 mg PO DIRECTED #45 tabs 08/25/23 [Rx Confirmed 01/28/24] Active Medications Acetaminophen (Acetaminophen 325 Mg Tablet) 650 mg PO Q6H PRN PRN Reason: Mild Pain (1-3) or Fever Last Admin: 01/29/24 20:29 Dose: 650 mg Aspirin (Aspirin 81 Mg Enteric Tablet) 81 mg PO QAM [facility] Last Admin: 01/30/24 09:20 Dose: 81 mg Atorvastatin Calcium (Atorvastatin 40 Mg Tablet) 40 mg PO DAILY [facility] Last Admin: 01/30/24 09:20 Dose: 40 mg Dextrose (Dextrose 50% 25 Gm/50 Ml Syringe) 12.5 gm IV PUSH PRN PRN; Protocol PRN Reason: Hypoglycemia Gabapentin (Gabapentin 300 Mg Capsule) 300 mg PO BID [facility] Last Admin: 01/30/24 09:20 Dose: 300 mg Glucagon (Glucagon For Inj 1 Mg Vial) 1 mg IM PRN PRN; Protocol PRN Reason: Hypoglycemia Glucose (Glucose Oral Gel 15 Gm Of Glucse In 37.5 Gm Tube) 15 gm PO PRN PRN; Protocol PRN Reason: Hypoglycemia Heparin Sodium (Porcine) (Heparin Sodium 5,000 Units/Ml Vial) 4,000 units IV PUSH PRN PRN PRN Reason: aPTT less than 55 seconds Last Admin: 01/28/24 17:36 Dose: 4,000 units Heparin Sodium (Porcine) (Heparin Sodium 5,000 Units/Ml Vial) 3,500 units IV PUSH PRN PRN PRN Reason: aPTT 55 - 70 seconds Last Admin: 01/29/24 00:35 Dose: 3,500 units Heparin Sodium/Dextrose (Heparin Sodium/D5w 100 Units/Ml) 25,000 units in 250 mls @ 16 mls/hr IV CONT .[id number] [facility]; Protocol Last Titration: 01/30/24 14:00 Dose: 1,600 units/hr, 16 mls/hr Dextrose (Dextrose 5% 1,000 Ml) 1,000 mls @ 100 mls/hr IVPB PRN PRN; Protocol PRN Reason: Hypoglycemia Sodium Chloride (Normal Saline Iv) 1,000 mls @ 125 mls/hr IV CONT .Q8H ONE Stop: 01/30/24 18:38 Last Admin: 01/30/24 12:45 Dose: 125 mls/hr Insulin Aspart (Insulin Aspart (*Bkc) 100 Units/Ml) 3 - 6 units SUB-Q TIDWM ELIEL; Protocol Last Admin: 01/30/24 08:20 Dose: Not Given Insulin Asp
[2024-01-30] MEDS: NITROGLYCERIN 0.6 MG/HR PATCH 1 PATCH TRANSDERM (15:00)
[2024-01-30 17:17] LABS: Glucose Point of Care 179 mg/dl (65-105)
--- NOTE | 2024-01-30 18:01 | PC.NURSE ---
IV heparin had 30 mL left at time of transport. Sent extra bag of heparin for pt transport to [facility] in case of emergency.
== END 2024-01-30 17:50 | disposition short-term general hospital (02) | DRG 282 ==
LOC: ANHED 11:15 → ANHIMU 12:52
PROVIDERS: Emergency Medicine; Internal Medicine; Specialist; Student in an Organized Health Care Education/Training Program; Admitting Provider Student in an Organized Health Care Education/Training Program; Emergency Provider Nurse Practitioner Family; Visit Provider Internal Medicine
PROC: 4A023N7 Measurement of Cardiac Sampling and Pressure, Left Heart, Percutaneous Approach (ICD-10-PCS; CPT 93452; principal; 2024-01-30 10:00)
DX: I21.4 Non-ST elevation (NSTEMI) myocardial infarction (principal); I25.10 Atherosclerotic heart disease of native coronary artery without angina pectoris; I48.0 Paroxysmal atrial fibrillation; E11.9 Type 2 diabetes mellitus without complications; D64.9 Anemia, unspecified; E78.5 Hyperlipidemia, unspecified; Z79.4 Long term (current) use of insulin; Z87.19 Personal history of other diseases of the digestive system; Z86.73 Personal history of transient ischemic attack (TIA), and cerebral infarction without residual deficits; Z79.01 Long term (current) use of anticoagulants; Z79.82 Long term (current) use of aspirin
CPT/HCPCS: 36415; 71046; 80048; 80053; 80061; 82948; 83036; 83690; 83880; 84439; 84443; 84480; 84484; 85025; 85055; 85380; 85610; 85730; 93005; 93306; 93458; 99285; A9270; C1887; C1894; J1644; J1815; J2250; J2270; J3010; J7030; J7040

== ENCOUNTER 2024-06-28 16:15 | Outpatient (RCR) | payer OTHER, SELFPAY ==
[2024-05-18 09:13] VITALS: PULSE 74
== END 2024-06-28 17:28 | disposition home or self-care (01) ==
LOC: ANHCPREHAB 16:15
PROVIDERS: Visit Provider Internal Medicine Interventional Cardiology
DX: Z95.5 Presence of coronary angioplasty implant and graft (principal)
CPT/HCPCS: 93798